=== PATIENT | male | born 1960 | race Caucasian/White ===

== ENCOUNTER 2016-11-28 07:41 | Emergency (ER) | payer BC ==
[~2016-11-28] VITALS: Ht 182.9 cm; Wt 84.1 kg
[2016-11-28 07:45] VITALS: TEMP 36.5; Ht 182.9 cm; Wt 84.1 kg
[2016-11-28] MEDS ORDERED: METO25TA3 PO (08:18)
[2016-11-28] MEDS ORDERED: WARF10TA4 PO ×2 (08:18)
[2016-11-28] MEDS ORDERED: HYDR25TA4 PO (08:18)
[2016-11-28] MEDS ORDERED: PRAV20TA PO (08:18)
[2016-11-28] MEDS ORDERED: FLEC50TA20 PO (08:18)
[2016-11-28 08:28] LABS: BASO % 0.4 %; BASO ABS # 0.05 K/uL (0-0.2); COMPLETE YES; EOS % 1.2 %; HEMATOCRIT 42.9 % (42-52); IG% 0.2 %; LYMPH % 16.1 %; MEAN CORPUSCULAR HEMOGLOBIN 32.8 pg (25-34); MEAN CORPUSCULAR HGB CONC 36.8 g/dl (32-36); MEAN PLATELET VOLUME 9.9 fL (7.4-10.4); MONO % 10.8 %; NEUT % 71.3 %; PLATELET COUNT 283 K/uL (130-400); RED BLOOD COUNT 4.82 M/uL (4.7-6.1); WHITE BLOOD COUNT 13.66 K/uL (4.8-10.8)
--- NOTE | 2016-11-28 08:35 | EMERGENCY ROOM VISIT NOTE ---
History First contact with patient: 07:52 Chief Complaint: URINARY SYMPTOMS Stated Complaint: BLOOD IN URINE, PAIN IN LEG AND [place] AREA Nursing Triage Summary: Awoke today with hematuria and left-sided flank pain. (has a stent in the left kidney). History of Present Illness The patient is a 56 year old male 20 pack-yr Smoker w/ hx of Atrial Fibrillation on Warfarin and hx Renal artery Stenosis s/p stenting, who presents to the Emergency Room with complaints of dark red urine. Patient reports 2 episodes of dark red urine once around 3 AM the morning of arrival and subsequently between 5-7 AM. He denies increased urinary frequency, dysuria , urgency. He also reports constant flank pain 1/10 intensity and Left Leg pain particularly at the thigh since 3-4 PM day before arrival. No Hx of Renals stones. Pt denies fevers, chills, chest pain, shortness of breath, palpitation, nausea , vomiting, abdominal pain, diarrhea, and melena. Review of Systems See HPI for pertinent positives & negatives. A total of 10 systems reviewed and were otherwise negative. Social History Smoking Status: Current Every Day Smoker Alcohol Use: occasionally Marital Status: Housing Status: lives with family Current/Historical Medications Scheduled Flecainide (Tambocor), 25 MG PO BID Hydrochlorothiazide (Hctz), 25 MG PO DAILY Metoprolol Succ (Toprol Xl) (Toprol-Xl), 25 MG PO BID Pravastatin (Pravachol ), 20 MG PO PM Warfarin Sod (Jantoven), 10 MG PO 5XWK Warfarin Sod (Jantoven), 12.5 MG PO 2XWK Allergies Coded Allergies: No Known Allergies (Unverified , 11/28/16) Physical Exam Vital Signs Date Time Temp Pulse Resp B/P Pulse Ox O2 Delivery O2 Flow Rate FiO2 11/28/16 10:58 57 18 180/92 99 Room Air 11/28/16 08:42 63 19 148/79 95 Room Air 11/28/16 08:11 71 11/28/16 07:45 36.5 69 18 132/84 96 Room Air Physical Exam GENERAL: alert, well appearing, well nourished, no distress, non-toxic EYE EXAM: normal conjunctiva, PERRL and EOM's grossly intact NECK: supple, no nuchal rigidity, no adenopathy, non-tender LUNGS: Clear to auscultation. Normal chest wall mechanics HEART: no murmurs, S1 normal and S2 normal ABDOMEN: abdomen soft, non-tender, normo-active bowel sounds, no masses, no rebound or guarding. BACK: Back is symmetrical on inspection and there is no deformity, no midline tenderness, no CVA tenderness. SKIN: no rashes and no bruising UPPER EXTREMITIES: upper extremities are grossly normal. LOWER EXTREMITIES: No pitting edema. NEURO EXAM: Normal sensorium, cranial nerves II-XII grossly intact, normal speech, no gross weakness of arms, no gross weakness of legs. Medical Decision & Procedures Laboratory Results 11/28/16 08:03 Red Blood Count 4.82, Mean Corpuscular Volume 89.0, Mean Corpuscular Hemoglobin 32.8, Mean Corpuscular Hemoglobin Concent 36.8, Mean Platelet Volume 9.9, Neutrophils (%) (Auto) 71.3, Lymphocytes (%) (Auto) 16.1, Monocytes (%) (Auto) 10.8, Eosinophils (%) (Auto) 1.2, Basophils (%) (Auto) 0.4, Neutrophils # (Auto ) 9.74, Lymphocytes # (Auto) 2.20, Monocytes # (Auto) 1.48, Eosinophils # (Auto ) 0.16, Basophils # (Auto) 0.05 11/28/16 08:03 Test 11/28/16 08:03 11/28/16 08:50 11/28/16 09:30 White Blood Count 13.66 K/uL (4.8-10.8) Red Blood Count 4.82 M/uL (4.7-6.1) Hemoglobin 15.8 g/dL (14.0-18.0) Hematocrit 42.9 % (42-52) Mean Corpuscular Volume 89.0 fL (80-100) Mean Corpuscular Hemoglobin 32.8 pg (25-34) Mean Corpuscular Hemoglobin Concent 36.8 g/dl (32-36) Platelet Count 283 K/uL (130-400) Mean Platelet Volume 9.9 fL (7.4-10.4) Neutrophils (%) (Auto) 71.3 % Lymphocytes (%) (Auto) 16.1 % Monocytes (%) (Auto) 10.8 % Eosinophils (%) (Auto) 1.2 % Basophils (%) (Auto) 0.4 % Neutrophils # (Auto) 9.74 K/uL (1.4-6.5) Lymphocytes # (Auto) 2.20 K/uL (1.2-3.4) Monocytes # (Auto) 1.48 K/uL (0.11-0.59) Eosinophils # (Auto) 0.16 K/uL (0-0.5) Basophils # (Auto) 0.05 K/uL (0-0.2) RDW Standard Deviation 40.3 fL (36.4-46.3) RDW Coefficient of Variation 12.6 % (11.5-14.5) Immature Granulocyte % (Auto) 0.2 % Immature Granulocyte # (Auto) 0.03 K/uL (0.00-0.02) Anion Gap 9.0 mmol/L (3-11) Est Creatinine Clear Calc Drug Dose 96.3 ml/min Estimated GFR () 104.6 Estimated GFR (Non- 90.3 BUN/Creatinine Ratio 19.8 (10-20) Calcium Level 9.1 mg/dl (8.5-10.1) Prothrombin Time 83.6 SECONDS (9.0-12.0) Prothromb Time International Ratio 7.2 (0.9-1.1) Urine Color BROWN Urine Appearance CLOUDY (CLEAR) Urine pH 5.5 (4.5-7.5) Urine Specific [place] 1.025 (1.000-1.030) Urine Protein 2+ (NEG) Urine Glucose (UA) NEG (NEG) Urine Ketones NEG (NEG) Urine Occult Blood 3+ (NEG) Urine Nitrite NEG (NEG) Urine Bilirubin NEG (NEG) Urine Urobilinogen NEG (NEG) Urine Leukocyte Esterase NEG (NEG) Urine RBC >30 /hpf (0-4) Urine WBC 5-10 /hpf (0-5) Urine Epithelial Cells 5-10 /lpf (0-5) Urine Bacteria 1+ (NEG) Urine Mucus PRESENT (NONE PRSENT) Medical Decision 56 year old male 20 pack-yr Smoker w/ hx of Atrial Fibrillation on Warfarin and hx Renal artery Stenosis s/p stenting p/w dark red urine ddx: Nephrolithiasis vs. UTI vs. Bladder Cancer vs. Warfarin induced coagulopathy Hematuria -likely secondary to passed kidney stone in the setting of warfarin induced coagulopathy -minimal pain in left flank, no urgency frequency, dysuria, CBC: WBC 13.66, H/H wnl UA: 3+ blood, 2+ protein, 5-10 WBC, 1+ bacteria, hematuria confirmed, Evidence for UTI unremarkable, Urine cx will require followup by patient PT/INR: 83.6/7.2, patient's warfarin dosage was increased 1 month prior to arrival. CT Abdomen/Pelvis: punctate non-obstructing left renal stone. No hydronephrosis. no ureteral calculi identified. This could represent a recently passed stone versus a pyelonephritis. Upon reevaluation, the patient is feeling better. I discussed the findings and the treatment plan with the patient. He verbalizes agreement and understanding. He was discharged home with followup to PCP for Coumadin management and ongoing care. Patient advised to stop Coumadin for 48 hrs. Impression Primary Impression: Hematuria Additional Impressions: Renal colic Warfarin-induced coagulopathy Departure Information Dispostion Home / Self-Care Condition GOOD Referrals Nish Esquivel Jr,D.O. (PCP) Patient Instructions ED Hematuria, My [facility] Additional Instructions - Please stop Taking Warfarin for the next 48 hrs - Please follow up with Primary Care Provider and for PT/INR check this week - Please contact [facility] for results in 48 hrs - Take Tylenol as needed for pain. Do not take NSAIDS Resident Tracking Resident Involvement: Resident Care Provided Care Provided: Adult ED Problem Qualifiers
[2016-11-28 08:38] LABS: BUN/CREATININE RATIO 19.8 (10-20); CALCIUM 9.1 mg/dl (8.5-10.1); CREATININE 0.94 mg/dl (0.60-1.40); POTASSIUM 3.5 mmol/L (3.5-5.1)
--- NOTE | 2016-11-28 08:57 | DIAGNOSTIC IMAGING REPORT ---
ABDOMEN AND PELVIS CT WITHOUT CONTRAST CT DOSE: 830.67 mGy.cm HISTORY: Left flank pain TECHNIQUE: Multiaxial CT images of the abdomen and pelvis were performed without the use of intravenous and oral contrast according to the standard department stone protocol. COMPARISON STUDY: Renal ultrasound 06/14/2012. FINDINGS: Mild bibasilar subsegmental atelectasis. No pneumoperitoneum. No pneumatosis. There are few small hypodense lesions within the right hepatic lobe with the largest measuring 9 mm. These are too small to characterize. The unenhanced spleen, adrenal glands, pancreas, and gallbladder are unremarkable. No retroperitoneal lymphadenopathy. Left renal artery stent. Bladder is not well-distended but appears unremarkable. Punctate nonobstructing stone within the left kidney. No hydronephrosis. Mild left perinephric and proximal periureteral fat stranding. No ureteral or bladder calculi identified. Suboptimal evaluation for bowel pathology due to the lack of intravenous and oral contrast. However, there is no definite bowel wall thickening or obstruction. Colonic diverticulosis. Normal caliber appendix. IMPRESSION: 1. A punctate nonobstructing left renal stone. No hydronephrosis. 2. Mild left perinephric and proximal periureteral fat stranding. However, there are no ureteral calculi identified. This could represent a recently passed stone versus a pyelonephritis. 3. No bowel wall thickening or obstruction. 4. Colonic diverticulosis. 5. Normal appendix. Electronically signed by: Jose Muñoz M.D. 11/28/2016 8:56 AM Dictated Date/Time: 11/28/2016 8:47 AM
[2016-11-28 09:17] LABS: PROTHROMBIN TIME (PATIENT) 83.6 SECONDS (9.0-12.0)
[2016-11-28 09:23] LABS: INR 7.2 (0.9-1.1)
--- NOTE | 2016-11-28 09:35 | EMERGENCY ROOM VISIT NOTE ---
ED Visit Note First contact with patient: 07:52 Resident Physician Supervision Note: I interviewed and examined the patient. Discussed with Dr. Curry findings and plan as documented in the note. Any exceptions or clarifications are listed here : [None] Documented By: Morales Harris
[2016-11-28 09:54] LABS: MANUAL MICROSCOPIC REQUIRED? YES; URINE APPEARANCE CLOUDY (CLEAR); URINE BILIRUBIN NEG (NEG); URINE COLOR BROWN; URINE NITRITE NEG (NEG); URINE PH 5.5 (4.5-7.5); URINE SPECIFIC GRAVITY 1.025 (1.000-1.030); UROBILINOGEN NEG (NEG)
[2016-11-28 09:57] LABS: REVIEW REQ? NO
[2016-11-28 10:02] LABS: URINE RBC >30 /hpf (0-4)
[2016-11-28 10:03] LABS: URINE BACTERIA 1+ (NEG); URINE MUCUS PRESENT (NONE PRSENT); ZZUR CULT IF INDIC CLEAN CATCH NO
[2016-11-28 10:58] VITALS: BP 180/92; PULSE 57; O2SAT 99
== END 2016-11-28 11:16 | disposition home or self-care (01) ==
LOC: C.EDB 07:43
DX: R31.9 Hematuria, unspecified (principal); N23 Unspecified renal colic; D68.32 Hemorrhagic disorder due to extrinsic circulating anticoagulants; T45.515A Adverse effect of anticoagulants, initial encounter; I48.91 Unspecified atrial fibrillation; F17.200 Nicotine dependence, unspecified, uncomplicated; Z98.890 Other specified postprocedural states; Z79.01 Long term (current) use of anticoagulants

== ENCOUNTER 2024-08-10 03:20 | Inpatient (IN) ==
--- NOTE | 2024-08-10 03:52 | Emergency Department Note ---
Impression & Plan Syncope, Face lacerations, Hypokalemia [facility] Provider Note NAME: CARLA COELLO AGE: 64 SEX: Male INFORMANT: Patient and his ED PROVIDER(S): Heather Cleaning DO CHIEF COMPLAINT: syncope; facial trauma PLAN: Disposition: admit to the [facility] MEDICAL DECISION MAKING: This is a 64-year-old male patient who got up from bed this morning to go to the kitchen to get a dose of cough medication when he suffered a syncopal event. He remembers walking into the kitchen and grabbed a bottle of cough medication but then was on the floor with family members around him with significant trauma to his face. Patient's explains to me that he had recently worn a monitoring and evaluation advisor which recognized increased episodes of atrial fibrillation as well as episodes of ventricular tachycardia. I believe the patient may have suffered an episode of V. tach which could have led to him falling forward and striking his face and causing the facial trauma. CT scan of the brain, facial bones and cervical spine were negative for trauma. Patient was slightly hypokalemic. he was given IV potassium. Other laboratory studies revealed a glucose of 137. The patient was not anemic. White blood cell count was 13.1. Renal function was normal. He was given A tetanus booster. The wounds on his face were repaired by Kaylee Hart PA-C. Please see her procedure note dictation for details. I [facility] and they will evaluate for further inpatient care. Triage Nursing notes: reviewed and agree With them. Vital Signs: reviewed and Unremarkable Additional History obtained from: patient's is at the bedside Chronic Medical/Social Conditions affecting care: patient is on Eliquis for A- fib Differential Diagnosis: orthostasis, cough syncope, cardiac dysrhythmia, intracranial trauma, facial bone fractures viral illness, pneumonia Diagnostics, independently interpreted by me: ECG: Normal sinus rhythm at a rate of [address] segment elevation or signs of ischemia. There is no ectopy. QTc was 397 ms. Cardiac Monitoring: Normal sinus rhythm at 62 Imaging studies: CT scan of the brain:As per imbro CT scan of the facial bones:as per imbro CT scan of the cervical spine:as per imbro Chest x-ray: no acute pulmonary infiltrates or consolidation as per my independent interpretation HPI: 64 year old Male arrives for evaluation of Fall with facial trauma. patient who got up from bed this morning to go to the kitchen to get a dose of cough medication when he suffered a syncopal event. He remembers walking into the kitchen and grabbed a bottle of cough medication but then was on the floor with family members around him with significant trauma to his face. PAST MEDICAL HISTORY: See Below, PAST SURGICAL HISTORY: See Below, SOCIAL HISTORY: See Below, HOME MEDICATIONS: see list ALLERGIES: none VITALS: See Below PHYSICAL EXAMINATION: HEENT: Head - normocephalic With obvious trauma to his nose and just above his lip. There is some active bleeding noted. Pupils are equal, round, and reactive to light. Extraocular eye muscles are intact and sclera are anicteric. Ears - bilaterally patent canals with no evidence of hemotympanum. Nose - moist nasal mucosa without evidence of trauma or discharge. Mouth - moist buccal mucosa with no trauma to the teeth or signs of malocclusion. Neck:The neck is supple and there is no pain to palpation over the posterior cervical spine and no obvious step-offs or deformities. There is no JVD or tracheal deviation. Chest: There are no signs of deformities, contusions or abrasions to the chest wall. There is no obvious crepitus or paradoxical chest rise. Heart: Regular, rate, and rhythm. There is a normal S1 and S2 with no murmurs, clicks, or gallops appreciated. Lungs: Clear to auscultation bilaterally with no wheezes, rales, or rhonchi. Abdomen: Soft, completely nontender, nondistended, with good bowel sounds. There is no sign of trauma such as contusions, abrasions or penetrations. There are no palpable pulsatile masses or hepatosplenomegaly. There is no guarding, rigidity, or rebound noted. Pelvis: Stable to rock and compression. Extremities: No obvious trauma, deformities, contusions, or edema. There are easily palpable peripheral pulses. Neuro: The patient is awake and alert and easily able to follow commands. Muscle strength is 5 out of 5 in all 4 extremities. Otherwise, neuro exam is unremarkable. Back: The entire thoracic, lumbar, and sacral spine were palpated. There are no obvious step-offs or deformities noted. There are no obvious signs of trauma such as contusions abrasions penetrations noted to the back. Emergency department treatment: nurse monitoring, IV normal saline, IV potassium replacement, suture repair to the facial wound. Emergency department course: The patient was evaluated in room C-10. A complete history and physical was performed. Laboratory studies were drawn as above. Twelve-lead EKG was obtained as described above. An order was placed for continuous cardiac monitoring. The patient was in a normal sinus rhythm at a rate of 62. Past Med/Surg History Problem List (Updated 08/10/24 @ 23:37 by Heather Cleaning DO) Hypokalemia (Acute) Face lacerations (Acute) Syncope (Acute) CAD (coronary artery disease) Paroxysmal atrial fibrillation Diarrhea due to COVID-19 COVID-19 virus infection Chronic anticoagulation Hypokalemia Hyperlipidemia Hypertension Atrial fibrillation Ventricular tachycardia Nasal laceration Syncope and collapse Surgical History (Updated 08/10/24 @ 13:59 by Bharat Collins MD) S/P ablation of atrial fibrillation Social History Smoking Status: Current every day smoker Tobacco Type: Cigarettes Cigarettes Per Day: 3; Hx Alcohol Use: No Hx Substance Use: No Preferred Language: [place] Communication Ability: Effective 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 Beliefs That Will Affect Care: None Current Living Situation: Spouse Current Living Situation Comment: 1 story house Feels Safe at Home: Yes Assistive Devices: None Allergies Allergies Allergy/AdvReac Type Severity Reaction Status Date / Time No Known Allergies Allergy Unverified 11/28/16 08:13 Home Meds Home Medications Medication Instructions Recorded Confirmed Flecainide (Tambocor) 25 mg PO BID #0 tabs 11/28/16 HYDROCHLOROTHIAZIDE (HCTZ) 25 mg PO DAILY #0 tabs 11/28/16 Metoprolol Succ (Toprol Xl) 25 mg PO BID #30 tabs 11/28/16 (Toprol-Xl) Pravastatin (Pravachol ) 20 mg PO PM #0 tabs 11/28/16 Warfarin Sod (Jantoven) 10 mg PO 5XWK #0 tabs 11/28/16 Warfarin Sod (Jantoven) 12.5 mg PO 2XWK #0 tabs 11/28/16 Results & Data (ED) Vital Signs Vital Signs - 24 hr 08/10/24 03:16 08/10/24 03:16 08/10/24 03:25 Temperature 37.0 C Temperature Source Oral Pulse Rate 63 62 Respiratory Rate 20 Respiratory Effort / Characteristics Non-Labored Respiratory Depth Normal Respiratory Pattern Regular Blood Pressure 132/62 Blood Pressure Mean 85 Pulse Oximetry 96 95 Oxygen Delivery Method Room Air Room Air Sepsis Recent Fever Within 48 Hours Yes Sepsis New/Unexplained Change in Mental Status N/A Sepsis Action Taken by Nursing No Action Required 08/10/24 03:30 08/10/24 03:43 08/10/24 04:42 Temperature Temperature Source Pulse Rate 60 72 Respiratory Rate 20 16 Respiratory Effort / Characteristics Respiratory Depth Respiratory Pattern Blood Pressure 129/62 142/71 H Blood Pressure Mean 84 94 Pulse Oximetry 95 96 95 Oxygen Delivery Method Room Air Room Air Room Air Sepsis Recent Fever Within 48 Hours Sepsis New/Unexplained Change in Mental Status Sepsis Action Taken by Nursing 08/10/24 04:45 08/10/24 05:00 08/10/24 05:30 Temperature Temperature Source Pulse Rate 69 67 70 Respiratory Rate 20 16 Respiratory Effort / Characteristics Respiratory Depth Respiratory Pattern Blood Pressure 151/81 H 147/70 H Blood Pressure Mean 94 96 Pulse Oximetry 95 96 Oxygen Delivery Method Room Air Room Air Sepsis Recent Fever Within 48 Hours Sepsis New/Unexplained Change in Mental Status Sepsis Action Taken by Nursing Laboratory Data 08/10/24 03:30 08/10/24 03:30 Lab Results 08/10/24 08/10/24 08/10/24 Range/Units 03:30 03:43 03:54 WBC 13.15 H (4.8-10.8) K/ul RBC 4.97 (4.70-6.10) M/uL Hgb 15.8 (14.0-18.0) g/dl POC Hgb 15.0 (14.0-18.0) g/dl Hct 45.5 (42.0-52.0) % POC Hct 44 (42-52) % MCV 91.5 (80.0-100.0) fL MCH 31.8 (25.0-34.0) pg MCHC 34.7 (32.0-36.0) g/dL RDW Std Deviation 41.8 (36.4-46.3) fL RDW Coeff of Marcial 12.6 (11.5-14.5) % Plt Count 211 (130-400) K/uL MPV 10.2 (9.4-12.4) fL Immature Gran % (Auto) 0.4 % Neut % (Auto) 68.8 % Lymph % (Auto) 17.6 % [place] % (Auto) 12.5 % Eos % (Auto) 0.1 % Baso % (Auto) 0.6 % Neut # (Auto) 9.05 H (1.40-6.50) K/uL Lymph # (Auto) 2.31 (1.20-3.40) K/uL [place] # (Auto) 1.65 H (0.11-0.59) K/uL Eos # (Auto) 0.01 (0.00-0.50) K/uL Baso # (Auto) 0.08 (0.00-0.20) K/uL Immature Gran # (Auto) 0.05 (0.01-0.20) K/uL PT 11.0 (9.0-12.0) Seconds INR 1.0 (0.9-1.1) APTT 29 (21-31) Seconds PTT Ratio 1.1 POC Sodium 135 (135-144) mmol/L Sodium 136 (136-145) mmol/L POC Potassium 3.6 (3.3-5.0) mmol/L Potassium 3.2 L (3.5-5.1) mmol/L POC Chloride 95 L (101-112) mmol/L Chloride 96 L (98-107) mmol/L Carbon Dioxide 29 (21-32) mmol/L POC Total CO2 27 (24-31) mmol/L Anion Gap 11 (3-11) POC Anion Gap 18.0 (16-25) mmol/L POC BUN 18 (7-18) mg/dl BUN 18 (6-23) mg/dl Creatinine 1.06 (0.6-1.4) mg/dl POC Creatinine 1.1 (0.6-1.3) mg/dl Est Cr Clr Drug Dosing 77.3 ml/min eGFR 78.37 BUN/Creatinine Ratio 17.0 (10-20) Glucose 137 H (70-99(Fasting)) mg/dl POC Glucose (other) 133 H (70-99) mg/dl Calcium 9.5 (8.6-10.3) mg/dl POC Ioniz Calcium [place] 1.04 L (1.12-1.32) mmol/l Magnesium 1.9 (1.7-2.4) mg/dl Total Bilirubin 1.2 H (0.2-1.0) mg/dl AST 28 (13-39) U/L ALT 30 (7-52) U/L Alkaline Phosphatase 88 (34-104) U/L Troponin I High Sens 12.4 (0-20) pg/ml Total Protein 8.0 (6.0-8.3) gm/dl Albumin 4.7 (3.4-5.0) gm/dl Globulin 3.3 (2.5-4.0) gm/dl Albumin/Globulin Ratio 1.4 (0.9-2) Lipase 24 (11-82) U/L TSH 7.012 H (0.300-4.500) uIu/ml Adenovirus (PCR) Not Detected (NotDetected) B. pertussis DNA (PCR) Not Detected (NotDetected) B.parapertussis DNA PCR Not Detected (NotDetected) C. pneumoniae DNA (PCR) Not Detected (NotDetected) Coronavirus OC43 (PCR) Not Detected (NotDetected) Coronavirus HKU1 (PCR) Not Detected (NotDetected) Coronavirus 229E (PCR) Not Detected (NotDetected) SARS-CoV-2 (PCR) DETECTED A (NotDetected) Coronavirus NL63 (PCR) Not Detected (NotDetected) Human Metapneumovir PCR Not Detected (NotDetected) Influenza Type A (PCR) Not Detected (NotDetected) Influenza Type B (PCR) Not Detected (NotDetected) M. pneumoniae (PCR) Not Detected (NotDetected) Parainfluenza 1 (PCR) Not Detected (NotDetected) Parainfluenza 2 (PCR) Not Detected (NotDetected) Parainfluenza 3 (PCR) Not Detected (NotDetected) Parainfluenza 4 (PCR) Not Detected (NotDetected) RSV (PCR) Not Detected (NotDetected) Entero/Rhino (PCR) Not Detected (NotDetected) Administered Medications Acetaminophen (Acetaminophen 325 Mg Tab) 650 mg PO Q4H PRN PRN Reason: Pain or Fever Stop: 09/09/24 08:22 Last Admin: 08/10/24 21:20 Dose: 650 mg Documented By: Admin: 08/10/24 17:08 Dose: 650 mg Documented By: Admin: 08/10/24 11:13 Dose: 650 mg Documented By: PAT Apixaban (Apixaban 5 Mg Tablet) 5 mg PO BID YOEL Stop: 09/09/24 08:59 Last Admin: 08/10/24 20:40 Dose: 5 mg Documented By: Admin: 08/10/24 09:30 Dose: 5 mg Documented By: PAT Metoprolol Succinate (Metoprolol Succ 50mg Ext Rel Tab) 37.5 mg PO HS YOEL Stop: 09/09/24 20:59 Last Admin: 08/10/24 20:41 Dose: 37.5 mg Documented By: GARTH Rosuvastatin Calcium (Rosuvastatin Calcium 20 Mg Tab) 40 mg PO [facility] Stop: 09/09/24 20:59 Last Admin: 08/10/24 20:40 Dose: 40 mg Documented By: GARTH Discontinued Medications Diphtheria/Pertussis/Tetanus Vacc (Diphther/Tetan/Pertus Vaccine (Tdap, Adol/Adult) 0.5ml) 0.5 ml IM .ONCE ONE Stop: 08/10/24 03:44 Last Admin: 08/10/24 04:52 Dose: 0.5 ml Documented By: GOPI Potassium Chloride (K Osbaldo / Wtr) 10 meq in 100 mls @ 100 mls/hr IV ONE ONE Stop: 08/10/24 05:41 Last Infusion: 08/10/24 06:07 Dose: Infused Documented By: Admin: 08/10/24 04:51 Dose: 100 mls/hr Documented By: GOPI Remdesivir 200 mg/ Sodium (Chloride) 250 mls @ 125 mls/hr IV ONE STA; Protocol Stop: 08/10/24 08:45 Last Infusion: 08/10/24 10:32 Dose: Infused Documented By: Admin: 08/10/24 08:24 Dose: 125 mls/hr Documented By: PAT Potassium Chloride/Sodium Chloride (Normal Saline W/20 Meq Kcl) 20 meq in 1,000 mls @ 100 mls/hr IV .Q10H STA Stop: 08/10/24 16:46 Last Infusion: 08/10/24 18:31 Dose: Infused Documented By: Admin: 08/10/24 07:28 Dose: 100 mls/hr Documented By: SHALOM Lidocaine HCl (Lidocaine 1% Local 20 Ml Vial) 10 ml INFIL NOW ONE Stop: 08/10/24 06:06 Last Admin: 08/10/24 06:10 Dose: 10 ml Documented By: KMPrincess Discharge Plan Visit Data Chief Complaint: Syncope Stated Complaint: Syncope, Fall, Nose Laceration ED Provider: Heather Cleaning Discharge Problem: Syncope, Face lacerations, Hypokalemia Patient Disposition: Admitted As Inpatient Discharge Instructions Interventions: ED Discharge Assessment Last Done: 08/10/24 07:45
[2024-08-10 04:07] LABS: iSTAT Creatinine 1.1 mg/dl (0.6-1.3); iSTAT Ionized Calcium 1.04 mmol/l (1.12-1.32); iSTAT Potassium 3.6 mmol/L (3.3-5.0)
[2024-08-10 04:23] LABS: Basophils # (auto) 0.08 K/uL (0.00-0.20); Basophils % (auto) 0.6 %; Eosinophils # (auto) 0.01 K/uL (0.00-0.50); Eosinophils % (auto) 0.1 %; Hematocrit (blood only) 45.5 % (42.0-52.0); Hemoglobin 15.8 g/dl (14.0-18.0); Immature Granulocytes # (auto) 0.05 K/uL (0.01-0.20); Immature Granulocytes % (auto) 0.4 %; Lymphocytes # (auto) 2.31 K/uL (1.20-3.40); Lymphocytes % (auto) 17.6 %; Mean Corpuscular Hemoglobin 31.8 pg (25.0-34.0); Mean Corpuscular Hgb Conc 34.7 g/dL (32.0-36.0); Mean Corpuscular Volume 91.5 fL (80.0-100.0); Mean Platelet Volume 10.2 fL (9.4-12.4); Monocytes # (auto) 1.65 K/uL (0.11-0.59); Monocytes % (auto) 12.5 %; Neutrophils # (auto) 9.05 K/uL (1.40-6.50); Neutrophils % (auto) 68.8 %; Platelet Count 211 K/uL (130-400); RDW Coefficient of Variation 12.6 % (11.5-14.5); RDW Standard Deviation 41.8 fL (36.4-46.3); Red Blood Count 4.97 M/uL (4.70-6.10); White Blood Count 13.15 K/ul (4.8-10.8)
[2024-08-10 04:40] LABS: Albumin Globulin Ratio 1.4 (0.9-2); Albumin Level 4.7 gm/dl (3.4-5.0); Bilirubin,Total 1.2 mg/dl (0.2-1.0); Calcium 9.5 mg/dl (8.6-10.3); Creatinine Clr Calc Pharmacy 77.3 ml/min; Globulin 3.3 gm/dl (2.5-4.0); Potassium 3.2 mmol/L (3.5-5.1)
[2024-08-10 04:47] LABS: Troponin I High Sensitivity 12.4 pg/ml (0-20)
[2024-08-10 04:49] LABS: Partial Thromboplastin Ratio 1.1; Partial Thromboplastin Time 29 Seconds (21-31)
[2024-08-10] MEDS: POTASSIUM CHLORIDE / WTR 10 MEQ/100 ML PLCT IV ONE (04:51)
[2024-08-10] MEDS: DIPHTHER/TETAN/PERTUS Vaccine (Tdap, Adol/Adult) 0.5mL IM ONE (04:52)
[2024-08-10 05:12] LABS: Adenovirus PCR Not Detected (NotDetected); Bordetella parapertussis PCR Not Detected (NotDetected); Bordetella pertussis PCR Not Detected (NotDetected); Chlamydia pneumoniae PCR Not Detected (NotDetected); Coronavirus 229E PCR Not Detected (NotDetected); Coronavirus CoV-2 (COVID19)PCR DETECTED (NotDetected); Coronavirus HKU1 PCR Not Detected (NotDetected); Coronavirus NL63 PCR Not Detected (NotDetected); Coronavirus OC43PCR Not Detected (NotDetected); Human Metapneumovirus PCR Not Detected (NotDetected); Influenza A PCR Not Detected (NotDetected); Influenza B PCR Not Detected (NotDetected); Mycoplasma pneumoniae PCR Not Detected (NotDetected); Parainfluenza Virus 1 PCR Not Detected (NotDetected); Parainfluenza Virus 2 PCR Not Detected (NotDetected); Parainfluenza Virus 3 PCR Not Detected (NotDetected); Parainfluenza Virus 4 PCR Not Detected (NotDetected); Respiratory Syncytial VirusPCR Not Detected (NotDetected); Rhinovirus/Enterovirus PCR Not Detected (NotDetected)
--- NOTE | 2024-08-10 05:23 | CT Scan Report ---
EXAM: CT head/brain wo con CLINICAL HISTORY: Fall, multiple facial injuries, r/o head trauma TECHNIQUE: Axial non-contrast CT scan of the brain was performed from the skull base to the high parietal region with multiple reformats. One of the following dose reduction techniques were utilized for this exam: Automated exposure control, adjustment of the mA and/or kV according to patient size, use of iterative reconstruction. COMPARISON: None. FINDINGS: Brain Parenchyma: Normal attenuation of the cerebral hemispheres, cerebellum, and brainstem. No evidence of acute infarct, hemorrhage, or mass effect. No abnormal areas of hypo- or hyperattenuation. Ventricular System: Mildly prominent ventricular system suggestive of central involutional changes. No evidence of hydrocephalus or ventricular enlargement. Subarachnoid Spaces: Normal sulci and cisterns. No evidence of subarachnoid hemorrhage or extra-axial fluid collections. Cerebellum and Brainstem: Normal size and signal. No masses, lesions, or areas of abnormal signal. Orbits: Normal appearance of the globes, optic nerves, and extraocular muscles. No evidence of orbital masses or abnormal signal. Mastoid Air Cells: Clear mastoid air cells. No evidence of mastoiditis. Skull: Normal skull morphology. IMPRESSION: 1. Mildly prominent ventricular system suggestive of central involutional changes. 2. Rest of CT of the head without contrast is unremarkable with no acute intracranial abnromality. Electronically signed by Ai Oviedo 08-10-2024 05:23 AM
--- NOTE | 2024-08-10 05:32 | CT Scan Report ---
EXAM: CT facial bones wo con CLINICAL HISTORY: fall, facial injuries, laceration down nasal area, painful teeth, r/o trauma. TECHNIQUE: CT scan of the maxillofacial region was performed without the administration of intravenous contrast. Contiguous axial images were obtained from the skull base to the mandible. Coronal and sagittal reformatted images were also reviewed. One of the following dose-reduction techniques was utilized for this exam. Automated exposure control, adjustment of the mA and/or kV according to patient size, and use of iterative reconstruction. COMPARISON: No previous studies are available for comparison. FINDINGS: Bones: Maxilla: The maxillary bones are intact without evidence of acute fracture, lytic or sclerotic lesions. No signs of maxillary sinus wall fractures. Mandible: The mandibular bone is intact with normal cortices and trabecular patterns. There is no evidence of fracture, osteomyelitis, or neoplastic lesion. Zygomatic Bones: The zygomatic arches are intact bilaterally without evidence of fracture or deformity. Nasal Bones and nasal cavity: Skin wound/ulcer is seen involving the nasal region right aspect associated with soft tissue swelling and edema. No definite displaced fractures. Orbital Angulo: The orbital angulo are intact with no evidence of fracture or bony erosion. Orbits: The orbits are normal in size and shape. The globes are symmetric and well-positioned with no evidence of proptosis. The extraocular muscles appear normal in size and symmetry. The optic nerves are normal in caliber and course with no signs of compression or lesion. No retro-orbital masses or abnormal fluid collections are observed. Paranasal Sinuses: Frontal Sinuses: The frontal sinuses are well-pneumatized and free of fluid or soft tissue masses. Ethmoid Sinuses: The ethmoid air cells are clear with no mucosal thickening or fluid levels. Maxillary Sinuses: The maxillary sinuses are well-pneumatized with no fluid levels, mucosal thickening, or masses. Sphenoid Sinuses: The sphenoid sinuses are clear with no abnormalities noted. Temporomandibular Joints (TMJ): The TMJs are symmetric and normal in appearance. The mandibular condyles are well-positioned within the glenoid fossae. There are no signs of dislocation, subluxation, or degenerative changes. The articular eminences are normal in contour. Soft Tissues: The rest of the soft tissues of the face, including the cheeks, lips, and submandibular regions, appear unremarkable. There are no masses, cysts, or abnormal fluid collections. The parotid and submandibular glands are normal in size and appearance without focal lesions. Additional Findings: There are no additional abnormal findings in the visualized soft tissue structures or bony elements. No signs of osteomyelitis or other infectious processes. IMPRESSION: 1. Skin wound/ulcer is seen involving the nasal region right aspect associated with soft tissue swelling and edema. 2. No acute fractures. [facility] was called at [phone] at 04:26 AM WELFARE ELIGIBILITY WORKER, 08/10/2024, and ARNAV Hart was informed regarding the presence of important medical findings in the report. Electronically signed by Ai Oviedo 08-10-2024 05:32 AM
--- NOTE | 2024-08-10 05:35 | XRay Report ---
EXAM: XR chest 1V portable CLINICAL HISTORY: SYNCOPE. TECHNIQUE: An X-ray image of the chest is obtained in AP portable projection. COMPARISON: CT on 06/02/2022. FINDINGS: Pulmonary Parenchyma: No evidence of consolidation, collapse, or focal opacities. No pulmonary nodules are identified. No evidence of pleural effusion or pleural thickening. Heart and Mediastinum: Heart size and shape are normal. No mediastinal widening or masses. No hilar or mediastinal lymphadenopathy. Bony Thorax: Bony thorax appears intact without fractures or deformities. Soft Tissues: Soft tissues overlying the chest wall are unremarkable. IMPRESSION: 1. No acute cardiopulmonary abnormalities are identified. 2. No interval change in comparison with the prior CT. Electronically signed by Ai Oviedo 08-10-2024 05:34 AM
--- NOTE | 2024-08-10 05:35 | CT Scan Report ---
EXAM: CT cervical spine wo con CLINICAL HISTORY: fall, multiple facial injuries, r/o neck trauma. TECHNIQUE: CT scan of the cervical spine was performed without the administration of intravenous contrast. Contiguous axial images were obtained from the skull base to the upper thoracic spine. Coronal and sagittal reformatted images were also reviewed. One of the following dose-reduction techniques was utilized for this exam. Automated exposure control, adjustment of the mA and/or kV according to patient size, and use of iterative reconstruction. COMPARISON: No previous studies are available for comparison. FINDINGS: No fracture lines, wedging, vertebral collapse Loss of cervical lordosis may indicate muscle spasmMultilevel degenerative changes of the cervical spine with narrowing of the intervertebral disc spaces associated with anterior and posterior marginal osteophytes. No lytic or sclerotic bony lesions Atlantoaxial osteoarthritic changes Mild multilevel facet arthropathic changes neurocentral arthropathy from C4-5 down to C6-7 causing degenerative corresponding neuroforaminal compromise C4-5 down to C6-7 posterior disc bulges indenting the cord and encroaching into both neural exit pathways and exiting nerve roots Better evaluation of disc disease requires further MRI No paraspinal masses IMPRESSION: 1. No fracture lines, wedging, vertebral collapse 2. Loss of cervical lordosis may indicate muscle spasm 3. Multilevel degenerative changes 4. Mild multilevel facet arthropathic changes 5. 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 C4-5 down to C6-7 posterior disc bulges encroaching into both exiting nerve roots 7. Better evaluation of disc disease requires further MRI. Electronically signed by Ai Oviedo 08-10-2024 05:35 AM
[2024-08-10] MEDS: LIDOCAINE 1% LOCAL 20 ML VIAL INFIL ONE (06:10)
--- NOTE | 2024-08-10 06:39 | History & Physical Report ---
Date of Service August 10, 2024 Assessment & Plan (1) Syncope and collapse: (2) Ventricular tachycardia: (3) Atrial fibrillation: (4) Hypokalemia: (5) Chronic anticoagulation: (6) Nasal laceration: (7) Hypertension: (8) Hyperlipidemia: (9) COVID-19 virus infection: (10) Diarrhea due to COVID-19: Plan Syncope and collapse- The patient will be admitted to telemetry for serial cardiac enzymes, serial EKG's, cardiac rhythm monitoring and a 2-D echocardiogram with Dopplers. Has recently worn a monitor with Dr. Leung that identified ventricular tachycardia. Underwent cardiac catheterization at [facility] on 07/31 which showed an isolated 30% lesion with no intervention There is a follow-up appointment at [facility] on 08/14 to see EPS specialist In the interim, the patient has come to the emergency department with a syncopal episode that occurred rapidly enough that he was unable to break his fall other than with his nose. Has a large skin laceration Patient had been on flecainide 25 mg twice daily in the past which was discontinued Current medications include metoprolol succinate ER 37.5 mg at bedtime, and apixaban 5 mg p.o. twice daily, however previously been on warfarin. He presently is on hydrochlorothiazide 25 mg every morning, which will be held due to hypokalemia Potassium is 3.2 on admission, received 10 mEq K rider in the ED, and placed on NSS + KCl 20 mill equivalents at 100 mL/h x 1 L Add magnesium level to the ED labs and supplement as needed Consult cardiology, patient has no ectopy while in the ED at this time, will ask whether IV antiarrhythmic is indicated as amiodarone COVID-19 infection/gastroenteritis- Likely a contributing cause to diarrhea and hypokalemia Will therefore start on remdesivir IV per protocol IV fluids for supplementation as noted above Hyperlipidemia- Continue rosuvastatin 40 mg at bedtime, previously on pravastatin 20 at bedtime History of Present Illness Chief Complaint: The patient presents to the emergency department after a syncopal episode, where he was getting up to a cough medicine earlier this morning, and found himself on the floor looking up at the ceiling with his family around him. He fell abruptly nothing he has a large laceration on his nose which is being repaired in the ED. Primary Care Provider: NO PCP The patient is a 64-year-old male with a past medical history including atrial fibrillation status post ablation several years ago, recently diagnosed ventricular tachycardia, recent negative cardiac catheterization at [facility] on 07/31, hypertension, and hyperlipidemia. His reports that he had had loose stools over the past 24 to 48 hours, and he reports nasal congestion and sinus congestion. He has had no cough or shortness of breath. He was diagnosed with COVID in the emergency department this morning. Allergies Allergy/AdvReac Type Severity Reaction Status Date / Time No Known Allergies Allergy Unverified 11/28/16 08:13 Home Medications Medication Instructions Recorded Confirmed Type Flecainide (Tambocor) 25 mg PO BID #0 tabs 11/28/16 History HYDROCHLOROTHIAZIDE (HCTZ) 25 mg PO DAILY #0 tabs 11/28/16 History Metoprolol Succ (Toprol Xl) 25 mg PO BID #30 tabs 11/28/16 History (Toprol-Xl) Pravastatin (Pravachol ) 20 mg PO PM #0 tabs 11/28/16 History Warfarin Sod (Jantoven) 10 mg PO 5XWK #0 tabs 11/28/16 History Warfarin Sod (Jantoven) 12.5 mg PO 2XWK #0 tabs 11/28/16 History Past Med/Surg History Problem List (Updated 08/10/24 @ 06:51 by Edin Abbott MD) Diarrhea due to COVID-19 COVID-19 virus infection Chronic anticoagulation Hypokalemia Hyperlipidemia Hypertension Atrial fibrillation Ventricular tachycardia Nasal laceration Syncope and collapse Social History Smoking Status: Current every day smoker Tobacco Type: Cigarettes Preferred Language: Albanian Feels Safe at Home: Yes Review of Systems Review of Systems: The patient denies chest pain, palpitations, shortness of breath, dyspnea on exertion, cough, lower extremity swelling, sore throat, fevers, chills, sweats, nausea, vomiting, diarrhea , constipation, abdominal pain, pelvic pain, blood in urine or stool, dysuria, urinary frequency or urgency, lightheadedness, dizziness, headache, imbalance, focal or generalized weakness, numbness or tingling in arms or legs, generalized arthralgias or myalgias, back or neck pain, or night sweats. The review of systems is otherwise negative other than for that already noted above, and at least 10 systems have been reviewed. Physical Exam Physical Exam: The patient is awake, alert and oriented 3, well developed and well nourished, has a large linear laceration on his nose with recent bleeding, otherwise sitting upright in bed and in no acute distress. HEENT--PERRL, EOMI, mucous membranes and oropharynx dry. Neck--supple. No JVD. No bruits. Thyroid normal, trachea midline, no adenopathy. Heart--normal S1 and S2. No murmurs, rubs or gallops. Lungs--clear bilaterally, no respiratory distress, no accessory muscle use. Abdomen--normal bowel sounds and soft. Nontender. Nondistended, no hernias or masses, no organomegaly. Extremities--no cyanosis or clubbing. No edema. There are good distal pulses b/l. Dermatologic--normal skin turgor, normal color, no abnormal lymph nodes, no rash. Neurologic--cranial nerves II through XII grossly intact. Rheumatologic--normal range of motion. Psychiatric--normal affect. Results & Data Results & Data Vital Signs (Past 12 Hours) Vital Signs Temp Pulse Resp BP Pulse Ox O2 Del Method 08/10/24 05:30 70 16 147/70 H 96 Room Air 08/10/24 05:00 67 20 151/81 H 95 Room Air 08/10/24 04:45 69 08/10/24 04:42 72 16 142/71 H 95 Room Air 08/10/24 03:43 96 Room Air 08/10/24 03:30 60 20 129/62 95 Room Air 08/10/24 03:25 62 08/10/24 03:16 95 Room Air 08/10/24 03:16 37.0 C 63 20 132/62 96 Room Air Laboratory Results Laboratory Results WBC 13.15 K/ul (4.8-10.8) H 08/10/24 03:30 RBC 4.97 M/uL (4.70-6.10) 08/10/24 03:30 Hgb 15.8 g/dl (14.0-18.0) 08/10/24 03:30 POC Hgb 15.0 g/dl (14.0-18.0) 08/10/24 03:54 Hct 45.5 % (42.0-52.0) 08/10/24 03:30 POC Hct 44 % (42-52) 08/10/24 03:54 MCV 91.5 fL (80.0-100.0) 08/10/24 03:30 MCH 31.8 pg (25.0-34.0) 08/10/24 03:30 MCHC 34.7 g/dL (32.0-36.0) 08/10/24 03:30 RDW Std Deviation 41.8 fL (36.4-46.3) 08/10/24 03:30 RDW Coeff of Marcial 12.6 % (11.5-14.5) 08/10/24 03:30 Plt Count 211 K/uL (130-400) 08/10/24 03:30 MPV 10.2 fL (9.4-12.4) 08/10/24 03:30 Immature Gran % (Auto) 0.4 % 08/10/24 03:30 Neut % (Auto) 68.8 % 08/10/24 03:30 Lymph % (Auto) 17.6 % 08/10/24 03:30 [place] % (Auto) 12.5 % 08/10/24 03:30 Eos % (Auto) 0.1 % 08/10/24 03:30 Baso % (Auto) 0.6 % 08/10/24 03:30 Neut # (Auto) 9.05 K/uL (1.40-6.50) H 08/10/24 03:30 Lymph # (Auto) 2.31 K/uL (1.20-3.40) 08/10/24 03:30 [place] # (Auto) 1.65 K/uL (0.11-0.59) H 08/10/24 03:30 Eos # (Auto) 0.01 K/uL (0.00-0.50) 08/10/24 03:30 Baso # (Auto) 0.08 K/uL (0.00-0.20) 08/10/24 03:30 Immature Gran # (Auto) 0.05 K/uL (0.01-0.20) 08/10/24 03:30 PT 11.0 Seconds (9.0-12.0) 08/10/24 03:43 INR 1.0 (0.9-1.1) 08/10/24 03:43 APTT 29 Seconds (21-31) 08/10/24 03:43 PTT Ratio 1.1 08/10/24 03:43 POC Sodium 135 mmol/L (135-144) 08/10/24 03:54 Sodium 136 mmol/L (136-145) 08/10/24 03:30 POC Potassium 3.6 mmol/L (3.3-5.0) 08/10/24 03:54 Potassium 3.2 mmol/L (3.5-5.1) L 08/10/24 03:30 POC Chloride 95 mmol/L (101-112) L 08/10/24 03:54 Chloride 96 mmol/L (98-107) L 08/10/24 03:30 Carbon Dioxide 29 mmol/L (21-32) 08/10/24 03:30 POC Total CO2 27 mmol/L (24-31) 08/10/24 03:54 Anion Gap 11 (3-11) 08/10/24 03:30 POC Anion Gap 18.0 mmol/L (16-25) 08/10/24 03:54 POC BUN 18 mg/dl (7-18) 08/10/24 03:54 BUN 18 mg/dl (6-23) 08/10/24 03:30 Creatinine 1.06 mg/dl (0.6-1.4) 08/10/24 03:30 POC Creatinine 1.1 mg/dl (0.6-1.3) 08/10/24 03:54 Est Cr Clr Drug Dosing 77.3 ml/min 08/10/24 03:30 eGFR 78.37 08/10/24 03:30 BUN/Creatinine Ratio 17.0 (10-20) 08/10/24 03:30 Glucose 137 mg/dl (70-99(Fasting)) H 08/10/24 03:30 POC Glucose (other) 133 mg/dl (70-99) H 08/10/24 03:54 Calcium 9.5 mg/dl (8.6-10.3) 08/10/24 03:30 POC Ioniz Calcium Eunice 1.04 mmol/l (1.12-1.32) L 08/10/24 03:54 Total Bilirubin 1.2 mg/dl (0.2-1.0) H 08/10/24 03:30 AST 28 U/L (13-39) 08/10/24 03:30 ALT 30 U/L (7-52) 08/10/24 03:30 Alkaline Phosphatase 88 U/L (34-104) 08/10/24 03:30 Troponin I High Sens 12.4 pg/ml (0-20) 08/10/24 03:30 Total Protein 8.0 gm/dl (6.0-8.3) 08/10/24 03:30 Albumin 4.7 gm/dl (3.4-5.0) 08/10/24 03:30 Globulin 3.3 gm/dl (2.5-4.0) 08/10/24 03:30 Albumin/Globulin Ratio 1.4 (0.9-2) 08/10/24 03:30 Lipase 24 U/L (11-82) 08/10/24 03:30 Adenovirus (PCR) Not Detected (NotDetected) 08/10/24 03:30 B. pertussis DNA (PCR) Not Detected (NotDetected) 08/10/24 03:30 B.parapertussis DNA PCR Not Detected (NotDetected) 08/10/24 03:30 C. pneumoniae DNA (PCR) Not Detected (NotDetected) 08/10/24 03:30 Coronavirus OC43 (PCR) Not Detected (NotDetected) 08/10/24 03:30 Coronavirus HKU1 (PCR) Not Detected (NotDetected) 08/10/24 03:30 Coronavirus 229E (PCR) Not Detected (NotDetected) 08/10/24 03:30 SARS-CoV-2 (PCR) DETECTED (NotDetected) A 08/10/24 03:30 Coronavirus NL63 (PCR) Not Detected (NotDetected) 08/10/24 03:30 Human Metapneumovir PCR Not Detected (NotDetected) 08/10/24 03:30 Influenza Type A (PCR) Not Detected (NotDetected) 08/10/24 03:30 Influenza Type B (PCR) Not Detected (NotDetected) 08/10/24 03:30 M. pneumoniae (PCR) Not Detected (NotDetected) 08/10/24 03:30 Parainfluenza 1 (PCR) Not Detected (NotDetected) 08/10/24 03:30 Parainfluenza 2 (PCR) Not Detected (NotDetected) 08/10/24 03:30 Parainfluenza 3 (PCR) Not Detected (NotDetected) 08/10/24 03:30 Parainfluenza 4 (PCR) Not Detected (NotDetected) 08/10/24 03:30 RSV (PCR) Not Detected (NotDetected) 08/10/24 03:30 Entero/Rhino (PCR) Not Detected (NotDetected) 08/10/24 03:30 Impressions Chest X-Ray 08/10/24 03:43 EXAM: XR chest 1V portable CLINICAL HISTORY: SYNCOPE. TECHNIQUE: An X-ray image of the chest is obtained in AP portable projection. COMPARISON: CT on 06/02/2022. FINDINGS: Pulmonary Parenchyma: No evidence of consolidation, collapse, or focal opacities. No pulmonary nodules are identified. No evidence of pleural effusion or pleural thickening. Heart and Mediastinum: Heart size and shape are normal. No mediastinal widening or masses. No hilar or mediastinal lymphadenopathy. Bony Thorax: Bony thorax appears intact without fractures or deformities. Soft Tissues: Soft tissues overlying the chest wall are unremarkable. IMPRESSION: 1. No acute cardiopulmonary abnormalities are identified. 2. No interval change in comparison with the prior CT. Electronically signed by Ai Oviedo 08-10-2024 05:[address] 08/10/24 03:44 EXAM: CT cervical spine wo con CLINICAL HISTORY: fall, multiple facial injuries, r/o neck trauma. TECHNIQUE: CT scan of the cervical spine was performed without the administration of intravenous contrast. Contiguous axial images were obtained from the skull base to the upper thoracic spine. Coronal and sagittal reformatted images were also reviewed. One of the following dose-reduction techniques was utilized for this exam. Automated exposure control, adjustment of the mA and/or kV according to patient size, and use of iterative reconstruction. COMPARISON: No previous studies are available for comparison. FINDINGS: No fracture lines, wedging, vertebral collapse Loss of cervical lordosis may indicate muscle spasmMultilevel degenerative changes of the cervical spine with narrowing of the intervertebral disc spaces associated with anterior and posterior marginal osteophytes. No lytic or sclerotic bony lesions Atlantoaxial osteoarthritic changes Mild multilevel facet arthropathic changes neurocentral arthropathy from C4-5 down to C6-7 causing degenerative corresponding neuroforaminal compromise C4-5 down to C6-7 posterior disc bulges indenting the cord and encroaching into both neural exit pathways and exiting nerve roots Better evaluation of disc disease requires further MRI No paraspinal masses IMPRESSION: 1. No fracture lines, wedging, vertebral collapse 2. Loss of cervical lordosis may indicate muscle spasm 3. Multilevel degenerative changes 4. Mild multilevel facet arthropathic changes 5. 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 C4-5 down to C6-7 posterior disc bulges encroaching into both exiting nerve roots 7. Better evaluation of disc disease requires further MRI. Electronically signed by Ai Oviedo 08-10-2024 05:[address] 08/10/24 03:44 EXAM: CT facial bones wo con CLINICAL HISTORY: fall, facial injuries, laceration down nasal area, painful teeth, r/o trauma. TECHNIQUE: CT scan of the maxillofacial region was performed without the administration of intravenous contrast. Contiguous axial images were obtained from the skull base to the mandible. Coronal and sagittal reformatted images were also reviewed. One of the following dose-reduction techniques was utilized for this exam. Automated exposure control, adjustment of the mA and/or kV according to patient size, and use of iterative reconstruction. COMPARISON: No previous studies are available for comparison. FINDINGS: Bones: Maxilla: The maxillary bones are intact without evidence of acute fracture, lytic or sclerotic lesions. No signs of maxillary sinus wall fractures. Mandible: The mandibular bone is intact with normal cortices and trabecular patterns. There is no evidence of fracture, osteomyelitis, or neoplastic lesion. Zygomatic Bones: The zygomatic arches are intact bilaterally without evidence of fracture or deformity. Nasal Bones and nasal cavity: Skin wound/ulcer is seen involving the nasal region right aspect associated with soft tissue swelling and edema. No definite displaced fractures. Orbital Angulo: The orbital angulo are intact with no evidence of fracture or bony erosion. Orbits: The orbits are normal in size and shape. The globes are symmetric and well-positioned with no evidence of proptosis. The extraocular muscles appear normal in size and symmetry. The optic nerves are normal in caliber and course with no signs of compression or lesion. No retro-orbital masses or abnormal fluid collections are observed. Paranasal Sinuses: Frontal Sinuses: The frontal sinuses are well-pneumatized and free of fluid or soft tissue masses. Ethmoid Sinuses: The ethmoid air cells are clear with no mucosal thickening or fluid levels. Maxillary Sinuses: The maxillary sinuses are well-pneumatized with no fluid levels, mucosal thickening, or masses. Sphenoid Sinuses: The sphenoid sinuses are clear with no abnormalities noted. Temporomandibular Joints (TMJ): The TMJs are symmetric and normal in appearance. The mandibular condyles are well-positioned within the glenoid fossae. There are no signs of dislocation, subluxation, or degenerative changes. The articular eminences are normal in contour. Soft Tissues: The rest of the soft tissues of the face, including the cheeks, lips, and submandibular regions, appear unremarkable. There are no masses, cysts, or abnormal fluid collections. The parotid and submandibular glands are normal in size and appearance without focal lesions. Additional Findings: There are no additional abnormal findings in the visualized soft tissue structures or bony elements. No signs of osteomyelitis or other infectious processes. IMPRESSION: 1. Skin wound/ulcer is seen involving the nasal region right aspect associated with soft tissue swelling and edema. 2. No acute fractures. [facility] was called at [phone] at 04:26 AM SPECIAL EDUCATION INSTRUCTOR, 08/10/2024, and ARNAV Hart was informed regarding the presence of important medical findings in the report. Electronically signed by Ai Oviedo 08-10-2024 05:[address] 08/10/24 03:44 EXAM: CT head/brain wo con CLINICAL HISTORY: Fall, multiple facial injuries, r/o head trauma TECHNIQUE: Axial non-contrast CT scan of the brain was performed from the skull base to the high parietal region with multiple reformats. One of the following dose reduction techniques were utilized for this exam: Automated exposure control, adjustment of the mA and/or kV according to patient size, use of iterative reconstruction. COMPARISON: None. FINDINGS: Brain Parenchyma: Normal attenuation of the cerebral hemispheres, cerebellum, and brainstem. No evidence of acute infarct, hemorrhage, or mass effect. No abnormal areas of hypo- or hyperattenuation. Ventricular System: Mildly prominent ventricular system suggestive of central involutional changes. No evidence of hydrocephalus or ventricular enlargement. Subarachnoid Spaces: Normal sulci and cisterns. No evidence of subarachnoid hemorrhage or extra-axial fluid collections. Cerebellum and Brainstem: Normal size and signal. No masses, lesions, or areas of abnormal signal. Orbits: Normal appearance of the globes, optic nerves, and extraocular muscles. No evidence of orbital masses or abnormal signal. Mastoid Air Cells: Clear mastoid air cells. No evidence of mastoiditis. Skull: Normal skull morphology. IMPRESSION: 1. Mildly prominent ventricular system suggestive of central involutional changes. 2. Rest of CT of the head without contrast is unremarkable with no acute intracranial abnromality. Electronically signed by Ai Oviedo 08-10-2024 05:23 AM Code Status & VTE Plan Code Status Full code VTE Prophylaxis Plan VTE Prophylaxis will be ordered: Yes PG Care Time/CCT Total # of Minutes Spent Total Time Spent with Patient: Total time spent is greater than 50% in coordination of care (as documented) at patient's floor/unit and/or counseling patient: Coding Level of Care Code 58536 INT INP/OBS CARE 3/75MIN Diagnoses Syncope and collapse R55 Ventricular tachycardia I47.20 Atrial fibrillation I48.91 Hypokalemia E87.6 Chronic anticoagulation Z79.01 Nasal laceration S01.21XA Hypertension I10 Hyperlipidemia E78.5 COVID-19 virus infection U07.1 Diarrhea due to COVID-19 U07.1; A08.39
--- NOTE | 2024-08-10 06:43 | Emergency Department Note ---
ED Visit Note I was asked to do the laceration repairs of this patient. Tetanus was updated per patient. Laceration Repair Location: Nasal bridge Total length: 6 cm Complexity: Simple Verbal consent was obtained after the risks and benefits were explained, including but not limited to bleeding, scarring, infection, pain, and bone/joint/nerve damage. At this time, the risks of the procedure are less than the risks of NOT performing the procedure. A time out was taken and the correct patient and site identified. The skin was prepped with betadine. The target area was anesthetized with 3 ml of 1% lidocaine without epinephrine. Copious irrigation was performed using nss. The skin was re-prepped with betadine and a sterile field set. The wound was explored for foreign bodies and none found. Examination revealed no injury to deep structures such as tendons, bone, or significant blood vessels. Debridement was not performed. The wound edges were approximated using 11, 6-0 simple interrupted nylon sutures. Hemostasis and excellent approximation was achieved. Antibacterial ointment and a sterile dressing applied. Detailed wound care instructions and signs and symptoms of infection reviewed with the pt. No complications and the patient tolerated the procedure well. Laceration Repair Location: Upper lip Total length: 2 cm irregular Complexity: Complex, through the philtrum Verbal consent was obtained after the risks and benefits were explained, including but not limited to bleeding, scarring, infection, pain, and bone/joint/nerve damage. At this time, the risks of the procedure are less than the risks of NOT performing the procedure. A time out was taken and the correct patient and site identified. The skin was prepped with betadine. The target area was anesthetized with 1 ml of 1% lidocaine without epinephrine. Copious irrigation was performed using nss. The skin was re-prepped with betadine and a sterile field set. The wound was explored for foreign bodies and none found. Examination revealed no injury to deep structures such as tendons, bone, or significant blood vessels. Debridement was not performed. The wound edges were approximated using 3, 6-0 simple interrupted nylon sutures. Hemostasis and excellent approximation was achieved. Antibacterial ointment and a sterile dressing applied. Detailed wound care instructions and signs and symptoms of infection reviewed with the pt. No complications and the patient tolerated the procedure well. .
[2024-08-10 06:55] LABS: Magnesium 1.9 mg/dl (1.7-2.4)
[2024-08-10] MEDS: NSS + 20MEQ KCL 20 MEQ/1,000 ML BAG IV STA (07:28)
[2024-08-10] MEDS ORDERED: ONDANSETRON INJ 2 MG/ML 2 ML VIAL IV PRN (08:23)
[2024-08-10] MEDS: REMDESIVIR 200 MG in SODIUM CHLORIDE 0.9% 210 ML IV STA (08:24)
[2024-08-10] MEDS: APIXABAN 5 MG TABLET PO SCH (09:30)
--- NOTE | 2024-08-10 09:33 | Cardiology Consultation ---
Date of Consultation August 10, 2024 Assessment & Plan (1) Syncope and collapse: (2) Ventricular tachycardia: (3) Paroxysmal atrial fibrillation: (4) S/P ablation of atrial fibrillation: (5) CAD (coronary artery disease): (6) Hypokalemia: Plan ASSESSMENT/PLAN: 1. Syncope: Etiology uncertain. Reportedly had ventricular tachycardia on outpatient monitor. Details are not known at the time of this note. Has systolic murmur on exam. Recommend echo to evaluate for significant valvular abnormality or LVOT obstruction. Continue telemetry. If no obvious structural abnormality or other etiology identified, would be concerning for arrhythmia as it was sudden without warning. Recommend electrophysiology evaluation. No driving. 2. Ventricular tachycardia: Details not known to me at the time of this note. His primary cardiology team will be available tomorrow to round and also would have knowledge of his outpatient testing. Correct electrolyte abnormalities (hypokalemia). If ventricular tachycardia while hospitalized, would recommend amiodarone. For now, continue beta-liam. 3. Paroxysmal atrial fibrillation: Underwent ablation in the past. Sinus rhythm today. Continue anticoagulation for stroke risk reduction. Had been on flecainide. Continue beta-liam. 4. CAD: Mild and nonobstructive per patient report. Risk factor modification. Continue statin therapy. 5. COVID: As per primary hospitalist service. 6. Disposition: [facility] cardiology will continue his cardiology care tomorrow. Plan of care communicated with primary hospitalist, Dr. Cuevas. Thank you for allowing me to participate in the care of your patient. Please call for any other questions or concerns. Sincerely, Janes Collins M.D. History of Present Illness Reason for Consultation: syncope and recently diagnosed VT Requesting Physician: Dr. Abbott Attending Physician: Sheila Cuevas MD History of Present Illness Mr. Friedman is a very pleasant 64-year-old gentleman with a history significant for mild nonobstructive CAD, ventricular tachycardia, paroxysmal atrial fibrillation s/p afib ablation, hypertension, and dyslipidemia. He follows with Dr. Leung of [facility]. Unfortunately, his outpatient cardiology records are not available for review at the time of today's consult. He reports that he underwent A-fib ablation years ago at [facility]. He continued to have A-fib burden on a paroxysmal basis but much improved from prior to the ablation. He had been on flecainide which was recently discontinued. He had outpatient monitor done through [facility] and he reports ventricular tachycardia. He has an appointment with Dr. Waters of [facility] electrophysiology this week in the outpatient setting to further discuss. He underwent diagnostic coronary angiography at [facility] on 07/31/2024 and reports a 30% stenosis in 1 vessel. He has not required PCI. He has had palpitations intermittently in the outpatient setting. He recalls an event that lasted approximately 16 hours in June, however palpitations are usually a few minutes, before spontaneously resolving. Symptoms occurred every 2 to 3 weeks. He has been experiencing upper respiratory infection symptoms, but no fever. He had chills the other day. He was ambulating in his home earlier this morning and had a syncopal event. It awakened his . He had no symptoms prior to syncope such as palpitations, chest pain, shortness of breath, or lightheadedness. He does not recall the next event, however he states that he was assisted to the restroom by his son where he had another syncopal event. With the first syncopal event, he was incontinent to stool and urine. He feels back to baseline currently other than the fact that his traumatic facial injuries are painful and he has difficulty breathing through his nose due to clot burden in his nostrils. At home, he takes Eliquis and metoprolol. Flecainide and warfarin had been discontinued recently. Review of systems: As above. Family history: Noncontributory. Social history: Currently smokes cigarettes, much less than 1 pack/day currently. Denies significant alcohol or drug abuse. Lives at home with his and son. Has 2 sons. He was unaccompanied in his hospital room. Allergies Allergy/AdvReac Type Severity Reaction Status Date / Time No Known Allergies Allergy Unverified 11/28/16 08:13 Home Medications Medication Instructions Recorded Confirmed Type Flecainide (Tambocor) 25 mg PO BID #0 tabs 11/28/16 History HYDROCHLOROTHIAZIDE (HCTZ) 25 mg PO DAILY #0 tabs 11/28/16 History Metoprolol Succ (Toprol Xl) 25 mg PO BID #30 tabs 11/28/16 History (Toprol-Xl) Pravastatin (Pravachol ) 20 mg PO PM #0 tabs 11/28/16 History Warfarin Sod (Jantoven) 10 mg PO 5XWK #0 tabs 11/28/16 History Warfarin Sod (Jantoven) 12.5 mg PO 2XWK #0 tabs 11/28/16 History Problem List (Updated 08/10/24 @ 13:59 by Bharat Collins MD) CAD (coronary artery disease) Paroxysmal atrial fibrillation Diarrhea due to COVID-19 COVID-19 virus infection Chronic anticoagulation Hypokalemia Hyperlipidemia Hypertension Atrial fibrillation Ventricular tachycardia Nasal laceration Syncope and collapse Patient History Surgical History (Updated 08/10/24 @ 13:59 by Bharat Collins MD) S/P ablation of atrial fibrillation Social History Smoking Status: Current every day smoker Tobacco Type: Cigarettes Cigarettes Per Day: 3; Hx Alcohol Use: No Hx Substance Use: No Preferred Language: Libyan Communication Ability: Effective Tie Loader Required: No Beliefs That Will Affect Care: None Current Living Situation: Spouse Current Living Situation Comment: 1 story house Feels Safe at Home: Yes Assistive Devices: None Physical Exam Physical Exam: Gen.: No acute distress. Alert and oriented. HEENT: Anicteric sclera. Swollen/injured nose. Neck: No JVD. No bruits. Normal carotid upstrokes bilaterally. Cardiac: Regular. Normal S1-S2. 2/6 systolic murmur. Pulmonary: Clear to auscultation bilaterally without wheezes, rales, or rhonchi. Abdomen: Soft, nontender, nondistended, with normoactive bowel sounds. No bruits noted. Extremities: 2+ radial pulses bilaterally. 2+ posterior tibialis pulses bilaterally. No edema or cyanosis. Results & Data Vital Signs (Past 12 Hours) Vital Signs Temp Pulse Resp BP Pulse Ox O2 Del Method 08/10/24 07:33 75 19 127/76 96 Room Air 08/10/24 05:30 70 16 147/70 H 96 Room Air 08/10/24 05:00 67 20 151/81 H 95 Room Air 08/10/24 04:45 69 08/10/24 04:42 72 16 142/71 H 95 Room Air 08/10/24 03:43 96 Room Air 08/10/24 03:30 60 20 129/62 95 Room Air 08/10/24 03:25 62 08/10/24 03:16 95 Room Air 08/10/24 03:16 37.0 C 63 20 132/62 96 Room Air Intake & Output 08/08/24 08/09/24 08/10/24 08/11/24 06:59 06:59 06:59 06:59 Intake Total 100 / 100 250 / 250 Balance 100 / 100 250 / 250 Weight 195 lb 15.855 oz 187 lb Laboratory Results Laboratory Results - last 24 hr 08/10/24 08/10/24 08/10/24 03:30 03:43 03:54 WBC 13.15 H RBC 4.97 Hgb 15.8 POC Hgb 15.0 Hct 45.5 POC Hct 44 MCV 91.5 MCH 31.8 MCHC 34.7 RDW Std Deviation 41.8 RDW Coeff of Marcial 12.6 Plt Count 211 MPV 10.2 Immature Gran % (Auto) 0.4 Neut % (Auto) 68.8 Lymph % (Auto) 17.6 [place] % (Auto) 12.5 Eos % (Auto) 0.1 Baso % (Auto) 0.6 Neut # (Auto) 9.05 H Lymph # (Auto) 2.31 [place] # (Auto) 1.65 H Eos # (Auto) 0.01 Baso # (Auto) 0.08 Immature Gran # (Auto) 0.05 PT 11.0 INR 1.0 APTT 29 PTT Ratio 1.1 POC Sodium 135 Sodium 136 POC Potassium 3.6 Potassium 3.2 L POC Chloride 95 L Chloride 96 L Carbon Dioxide 29 POC Total CO2 27 Anion Gap 11 POC Anion Gap 18.0 POC BUN 18 BUN 18 Creatinine 1.06 POC Creatinine 1.1 Est Cr Clr Drug Dosing 77.3 eGFR 78.37 BUN/Creatinine Ratio 17.0 Glucose 137 H POC Glucose (other) 133 H Calcium 9.5 POC Ioniz Calcium Eunice 1.04 L Magnesium 1.9 Total Bilirubin 1.2 H AST 28 ALT 30 Alkaline Phosphatase 88 Troponin I High Sens 12.4 Total Protein 8.0 Albumin 4.7 Globulin 3.3 Albumin/Globulin Ratio 1.4 Lipase 24 Adenovirus (PCR) Not Detected B. pertussis DNA (PCR) Not Detected B.parapertussis DNA PCR Not Detected C. pneumoniae DNA (PCR) Not Detected Coronavirus OC43 (PCR) Not Detected Coronavirus HKU1 (PCR) Not Detected Coronavirus 229E (PCR) Not Detected SARS-CoV-2 (PCR) DETECTED A Coronavirus NL63 (PCR) Not Detected Human Metapneumovir PCR Not Detected Influenza Type A (PCR) Not Detected Influenza Type B (PCR) Not Detected M. pneumoniae (PCR) Not Detected Parainfluenza 1 (PCR) Not Detected Parainfluenza 2 (PCR) Not Detected Parainfluenza 3 (PCR) Not Detected Parainfluenza 4 (PCR) Not Detected RSV (PCR) Not Detected Entero/Rhino (PCR) Not Detected Diagnostic Findings History and physical report reviewed. Labs reviewed and notable for normal high-sensitivity troponin x 1, hypokalemia, reasonable renal function, normal magnesium, normal transaminase levels, mild leukocytosis, normal hemoglobin. TSH mildly elevated. Chest x-ray 08/10/2024: No acute cardiopulmonary abnormalities. Telemetry personally reviewed: Sinus rhythm. Atrial triplet. No ventricular arrhythmia or significant pauses. No high-grade AV block. Medications Administered Current Inpatient Medications Acetaminophen (Acetaminophen 325 Mg Tab) 650 mg PO Q4H PRN PRN Reason: Pain or Fever Stop: 09/09/24 08:22 Apixaban (Apixaban 5 Mg Tablet) 5 mg PO BID YOEL Stop: 09/09/24 08:59 Last Admin: 08/10/24 09:30 Dose: 5 mg Remdesivir 100 mg/ Sodium (Chloride) 250 mls @ 250 mls/hr IV Q24H YOEL Stop: 08/14/24 12:59 Potassium Chloride/Sodium Chloride (Normal Saline W/20 Meq Kcl) 20 meq in 1,000 mls @ 100 mls/hr IV .Q10H STA Stop: 08/10/24 16:46 Last Admin: 08/10/24 07:28 Dose: 100 mls/hr Metoprolol Succinate (Metoprolol Succ 50mg Ext Rel Tab) 37.5 mg PO HS [facility] Stop: 09/09/24 20:59 Ondansetron HCl (Ondansetron Inj 2 Mg/Ml 2 Ml Vial) 4 mg IV Q6H PRN PRN Reason: Nausea Stop: 09/09/24 08:22 Rosuvastatin Calcium (Rosuvastatin Calcium 20 Mg Tab) 40 mg PO HS [facility] Stop: 09/09/24 20:59 PG Care Time/CCT Total # of Minutes Spent Total Time Spent with Patient: Total time spent is greater than 50% in coordination of care (as documented) at patient's floor/unit and/or counseling patient: Coding Level of Care Code 73369 INT INP/OBS CARE 375MIN Diagnoses Syncope and collapse R55 Ventricular tachycardia I47.20 Paroxysmal atrial fibrillation I48.0 S/P ablation of atrial fibrillation Z98.890; Z86.79 CAD (coronary artery disease) I25.10 Hypokalemia E87.6
[2024-08-10 10:12] LABS: Thyroid Stimulating Hormone 7.012 uIu/ml (0.300-4.500)
--- NOTE | 2024-08-10 10:14 | Hospitalist Progress Note ---
Date of Service August 10, 2024 Assessment & Plan (1) Syncope and collapse: Plan: Cardiac rhythm monitoring and a 2-D echocardiogram. Will await cardiology input. Has recently worn a monitor with Dr. Leung that identified ventricular tachycardia. Underwent cardiac catheterization at [facility] on 07/31 which showed an isolated 30% lesion with no intervention There is a follow-up appointment at [facility] on 08/14 to see EPS specialist In the interim, the patient has come to the emergency department with a syncopal episode that occurred rapidly enough that he was unable to break his fall. Patient had been on flecainide 25 mg twice daily in the past which was discontinued Current medications include metoprolol succinate ER 37.5 mg at bedtime, and apixaban 5 mg p.o. twice daily, however previously been on warfarin. He presently is on hydrochlorothiazide 25 mg every morning, which will be held due to hypokalemia Potassium is 3.2 on admission, received 10 mEq K rider in the ED, and placed on NSS + KCl 20 mill equivalents at 100 mL/h x 1 L (2) Ventricular tachycardia: Plan: See 1 (3) Atrial fibrillation: Plan: See 1 (4) Hypokalemia: Plan: Potassium is 3.2 on admission, received 10 mEq K rider in the ED, and placed on NSS + KCl 20 mill equivalents at 100 mL/h x 1 L Repeat K 3.6 (5) Chronic anticoagulation: Plan: Eliquis 5mg BID (6) Nasal laceration: Plan: Sutures intact, no active bleeding. (7) Hyperlipidemia: Plan: Continue rosuvastatin 40 mg at bedtime, previously on pravastatin 20 at bedtime (8) COVID-19 virus infection: Plan: COVID-19 infection/gastroenteritis- Likely a contributing cause to diarrhea and hypokalemia Continue Remdesivir (9) Diarrhea due to COVID-19: Plan: Occurred x1 during fall, resolved per patient. Plan Recheck TSH outpatient. Admission and Anticipated Discharge Date Admission Date: August 10, 2024 Subjective Alvaro is resting in bed this morning. Reports nasal congestion and intermittent dry cough. Otherwise, states that he feels well. Denies headache, visual changes, sore throat, chest pain, dizziness, lightheadedness, abdominal pain, diarrhea, urinary issues, swelling. He states he had a tactile fever on Sunday and "couldn't get warm", but by Sunday that had resolved. We discussed his syncopal episode that occurred yesterday - reports that he went to the kitchen for some medication. Reports he wasn't feeling well. And then he was told by family he fell in the living room. He was incontinent of bowel and bladder at that time, but requested to go to the bathroom because he felt like he still had to go. His son took him to the bathroom, at which time he fell again and hit his face on the tub. He doesn't remember any of this happening, the last thing he remembers is going to the kitchen and then waking up in the bathroom. Review of Systems Constitutional: no fever, no chills, no sweats, no body aches and no fatigue Eyes: no diplopia and no problem reported Ear, Nose, Mouth, Throat: + nasal congestion, + nasal trauma and + dry mouth; no dizziness, no sore throat and no pain with swallowing Respiratory: + cough (Dry, non-productive) Cardiovascular: no chest pain, no dyspnea at rest, no dyspnea on exertion and no edema Gastrointestinal: + fecal incontinence (Yesterday during s yncopal episode x1, no issues since); no abdominal pain, no nausea, no vomiting, no constipation and no diarrhea/loose stools Genitourinary: + urinary incontinence (Yesterday during syncopal episode x1, no issues since) Integumentary: no rash Neurologic: no headache(s) Physical Exam Constitutional: WD/WN, vitals as above Eyes: PERRL, conjunctivae normal, anicteric sclerae ENMT: Nose: + external nose abnormality (Sutures in place, no active bleeding, dried blood in nares) Respiratory: normal respiratory effort; no respiratory distress Au scultation: lungs clear to auscultation bilaterally Cardiovascular: RRR, no murmur, no edema Gastrointestinal (Abdomen): Inspection/Auscultation: normal bowel sounds Percussion/Palpation: abdomen soft; abdomen nontender Skin: no rashes, warm and dry Psychiatric: A+Ox3, euthymic affect Results & Data Results & Data Vital Signs (Past 12 Hours) Vital Signs Temp Pulse Resp BP BP Pulse Ox O2 Del Method 08/10/24 10:01 Room Air 08/10/24 09:48 37 C 18 141/82 H 98 Room Air 08/10/24 07:33 75 19 127/76 96 Room Air 08/10/24 05:30 70 16 147/70 H 96 Room Air 08/10/24 05:00 67 20 151/81 H 95 Room Air 08/10/24 04:45 69 08/10/24 04:42 72 16 142/71 H 95 Room Air 08/10/24 03:43 96 Room Air 08/10/24 03:30 60 20 129/62 95 Room Air 08/10/24 03:25 62 08/10/24 03:16 95 Room Air 08/10/24 03:16 37.0 C 63 20 132/62 96 Room Air Laboratory Results 08/10/24 08/10/24 08/10/24 Range/Units Unknown 03:54 03:43 WBC (4.8-10.8) K/ul RBC (4.70-6.10) M/uL Hgb (14.0-18.0) g/dl POC Hgb 15.0 (14.0-18.0) g/dl Hct (42.0-52.0) % POC Hct 44 (42-52) % MCV (80.0-100.0) fL MCH (25.0-34.0) pg MCHC (32.0-36.0) g/dL RDW Std Deviation (36.4-46.3) fL RDW Coeff of Marcial (11.5-14.5) % Plt Count (130-400) K/uL MPV (9.4-12.4) fL Immature Gran % (Auto) % Neut % (Auto) % Lymph % (Auto) % Randolph % (Auto) % Eos % (Auto) % Baso % (Auto) % Neut # (Auto) (1.40-6.50) K/uL Lymph # (Auto) (1.20-3.40) K/uL Randolph # (Auto) (0.11-0.59) K/uL Eos # (Auto) (0.00-0.50) K/uL Baso # (Auto) (0.00-0.20) K/uL Immature Gran # (Auto) (0.01-0.20) K/uL PT 11.0 (9.0-12.0) Seconds INR 1.0 (0.9-1.1) APTT 29 (21-31) Seconds PTT Ratio 1.1 POC Sodium 135 (135-144) mmol/L Sodium (136-145) mmol/L POC Potassium 3.6 (3.3-5.0) mmol/L Potassium (3.5-5.1) mmol/L POC Chloride 95 L (101-112) mmol/L Chloride (98-107) mmol/L Carbon Dioxide (21-32) mmol/L POC Total CO2 27 (24-31) mmol/L Anion Gap (3-11) POC Anion Gap 18.0 (16-25) mmol/L POC BUN 18 (7-18) mg/dl BUN (6-23) mg/dl Creatinine (0.6-1.4) mg/dl POC Creatinine 1.1 (0.6-1.3) mg/dl Est Cr Clr Drug Dosing ml/min eGFR BUN/Creatinine Ratio (10-20) Glucose (70-99(Fasting)) mg/dl POC Glucose (other) 133 H (70-99) mg/dl Calcium (8.6-10.3) mg/dl POC Ioniz Calcium Eunice 1.04 L (1.12-1.32) mmol/l Magnesium (1.7-2.4) mg/dl Total Bilirubin (0.2-1.0) mg/dl AST (13-39) U/L ALT (7-52) U/L Alkaline Phosphatase (34-104) U/L Troponin I High Sens (0-20) pg/ml Total Protein (6.0-8.3) gm/dl Albumin (3.4-5.0) gm/dl Globulin (2.5-4.0) gm/dl Albumin/Globulin Ratio (0.9-2) Lipase (11-82) U/L TSH (0.300-4.500) uIu/ml Urine Color Yellow Urine Appearance Clear (Clear) Urine pH 5.0 (4.5-7.5) Ur Specific [place] 1.037 H (1.000-1.030) Urine Protein 1+ H (Negative) Urine Glucose (UA) Negative (Negative) Urine Ketones 1+ H (Negative) Urine Blood Negative (Negative) Urine Nitrite Negative (Negative) Urine Bilirubin Negative (Negative) Urine Urobilinogen Negative (Negative) Ur Leukocyte Esterase Negative (Negative) Urine WBC (Auto) 0-5 (0-5) /hpf Urine RBC (Auto) 0-2 (0-2) /hpf U Hyaline Cast (Auto) 3-5 H (0-2) /lpf U Epithel Cells (Auto) 0-2 (0-2) /hpf Urine Bacteria (Auto) None Seen (None Seen) Urine Mucus Present A (None Prsent) Adenovirus (PCR) (NotDetected) B. pertussis DNA (PCR) (NotDetected) B.parapertussis DNA PCR (NotDetected) C. pneumoniae DNA (PCR) (NotDetected) Coronavirus OC43 (PCR) (NotDetected) Coronavirus HKU1 (PCR) (NotDetected) Coronavirus 229E (PCR) (NotDetected) SARS-CoV-2 (PCR) (NotDetected) Coronavirus NL63 (PCR) (NotDetected) Hepatitis C Ab Screen Human Metapneumovir PCR (NotDetected) Influenza Type A (PCR) (NotDetected) Influenza Type B (PCR) (NotDetected) M. pneumoniae (PCR) (NotDetected) Parainfluenza 1 (PCR) (NotDetected) Parainfluenza 2 (PCR) (NotDetected) Parainfluenza 3 (PCR) (NotDetected) Parainfluenza 4 (PCR) (NotDetected) RSV (PCR) (NotDetected) Entero/Rhino (PCR) (NotDetected) 08/10/24 Range/Units 03:30 WBC 13.15 H (4.8-10.8) K/ul RBC 4.97 (4.70-6.10) M/uL Hgb 15.8 (14.0-18.0) g/dl POC Hgb (14.0-18.0) g/dl Hct 45.5 (42.0-52.0) % POC Hct (42-52) % MCV 91.5 (80.0-100.0) fL MCH 31.8 (25.0-34.0) pg MCHC 34.7 (32.0-36.0) g/dL RDW Std Deviation 41.8 (36.4-46.3) fL RDW Coeff of Marcial 12.6 (11.5-14.5) % Plt Count 211 (130-400) K/uL MPV 10.2 (9.4-12.4) fL Immature Gran % (Auto) 0.4 % Neut % (Auto) 68.8 % Lymph % (Auto) 17.6 % Randolph % (Auto) 12.5 % Eos % (Auto) 0.1 % Baso % (Auto) 0.6 % Neut # (Auto) 9.05 H (1.40-6.50) K/uL Lymph # (Auto) 2.31 (1.20-3.40) K/uL Randolph # (Auto) 1.65 H (0.11-0.59) K/uL Eos # (Auto) 0.01 (0.00-0.50) K/uL Baso # (Auto) 0.08 (0.00-0.20) K/uL Immature Gran # (Auto) 0.05 (0.01-0.20) K/uL PT (9.0-12.0) Seconds INR (0.9-1.1) APTT (21-31) Seconds PTT Ratio POC Sodium (135-144) mmol/L Sodium 136 (136-145) mmol/L POC Potassium (3.3-5.0) mmol/L Potassium 3.2 L (3.5-5.1) mmol/L POC Chloride (101-112) mmol/L Chloride 96 L (98-107) mmol/L Carbon Dioxide 29 (21-32) mmol/L POC Total CO2 (24-31) mmol/L Anion Gap 11 (3-11) POC Anion Gap (16-25) mmol/L POC BUN (7-18) mg/dl BUN 18 (6-23) mg/dl Creatinine 1.06 (0.6-1.4) mg/dl POC Creatinine (0.6-1.3) mg/dl Est Cr Clr Drug Dosing 77.3 ml/min eGFR 78.37 BUN/Creatinine Ratio 17.0 (10-20) Glucose 137 H (70-99(Fasting)) mg/dl POC Glucose (other) (70-99) mg/dl Calcium 9.5 (8.6-10.3) mg/dl POC Ioniz Calcium Eunice (1.12-1.32) mmol/l Magnesium 1.9 (1.7-2.4) mg/dl Total Bilirubin 1.2 H (0.2-1.0) mg/dl AST 28 (13-39) U/L ALT 30 (7-52) U/L Alkaline Phosphatase 88 (34-104) U/L Troponin I High Sens 12.4 (0-20) pg/ml Total Protein 8.0 (6.0-8.3) gm/dl Albumin 4.7 (3.4-5.0) gm/dl Globulin 3.3 (2.5-4.0) gm/dl Albumin/Globulin Ratio 1.4 (0.9-2) Lipase 24 (11-82) U/L TSH 7.012 H (0.300-4.500) uIu/ml Urine Color Urine Appearance (Clear) Urine pH (4.5-7.5) Ur Specific [place] (1.000-1.030) Urine Protein (Negative) Urine Glucose (UA) (Negative) Urine Ketones (Negative) Urine Blood (Negative) Urine Nitrite (Negative) Urine Bilirubin (Negative) Urine Urobilinogen (Negative) Ur Leukocyte Esterase (Negative) Urine WBC (Auto) (0-5) /hpf Urine RBC (Auto) (0-2) /hpf U Hyaline Cast (Auto) (0-2) /lpf U Epithel Cells (Auto) (0-2) /hpf Urine Bacteria (Auto) (None Seen) Urine Mucus (None Prsent) Adenovirus (PCR) Not Detected (NotDetected) B. pertussis DNA (PCR) Not Detected (NotDetected) B.parapertussis DNA PCR Not Detected (NotDetected) C. pneumoniae DNA (PCR) Not Detected (NotDetected) Coronavirus OC43 (PCR) Not Detected (NotDetected) Coronavirus HKU1 (PCR) Not Detected (NotDetected) Coronavirus 229E (PCR) Not Detected (NotDetected) SARS-CoV-2 (PCR) DETECTED A (NotDetected) Coronavirus NL63 (PCR) Not Detected (NotDetected) Hepatitis C Ab Screen Pending Human Metapneumovir PCR Not Detected (NotDetected) Influenza Type A (PCR) Not Detected (NotDetected) Influenza Type B (PCR) Not Detected (NotDetected) M. pneumoniae (PCR) Not Detected (NotDetected) Parainfluenza 1 (PCR) Not Detected (NotDetected) Parainfluenza 2 (PCR) Not Detected (NotDetected) Parainfluenza 3 (PCR) Not Detected (NotDetected) Parainfluenza 4 (PCR) Not Detected (NotDetected) RSV (PCR) Not Detected (NotDetected) Entero/Rhino (PCR) Not Detected (NotDetected) PG Care Time/CCT Total # of Minutes Spent Total Time Spent with Patient: Total time spent is greater than 50% in coordination of care (as documented) at patient's floor/unit and/or counseling patient: [place] [address] SUB INP/OBS CARE 2/35MIN Patient Type Established Medical Decision Making Moderate Complexity Diagnoses Syncope and collapse R55 Ventricular tachycardia I47.20 Atrial fibrillation I48.91 Hypokalemia E87.6 Chronic anticoagulation Z79.01 Nasal laceration S01.21XA Hyperlipidemia E78.5 COVID-19 virus infection U07.1 Diarrhea due to COVID-19 U07.1; A08.39
[2024-08-10] MEDS: ACETAMINOPHEN 325 MG TAB PO PRN (11:13)
[2024-08-10 11:36] LABS: Appearance Urine Clear (Clear); Bacteria Urine Automated None Seen (None Seen); Bilirubin Urine Negative (Negative); Blood Urine Negative (Negative); Color Urine Yellow; Epithelial Cell Urine Auto 0-2 /hpf (0-2); Glucose Urine UA Negative (Negative); Ketones Urine 1+ (Negative); Leukocyte Esterase Urine Negative (Negative); Mucus Urine Present (None Prsent); Nitrite Urine Negative (Negative); Protein Urine 1+ (Negative); RBC Urine Automated 0-2 /hpf (0-2); Specific Gravity Urine 1.037 (1.000-1.030); Urobilinogen Urine Negative (Negative); WBC Urine Automated 0-5 /hpf (0-5)
--- OUTSIDE RECORDS SUMMARY | 2024-08-10 12:51 | External Medical Summary | Continuity of Care Document ---
Author Name Unknown Organization [facility] [address] [facility] Address [address] [place] [address] [phone] Care Team Providers Care Cake Puller Name Role Phone Milly Lynn Primary Care Physician [phone] [facility] [id number] Date(s): 07/11/24 - 07/11/24 [facility] [address], [address] [place] [address] [phone] Discharge Disposition: Home or Self Care Attending Physician: MARIO Garcia Sarah A Referring Physician: MARIO Garcia Sarah A Allergies, Adverse Reactions, Alerts No Known Allergies Medications Chantix 0.5 mg oral tablet Start: 06/24/24 9:44:00 AM EDT, see instructions, Disp# 11 tab, Initial Dose: Take 1 tab (0.5 mg) by mouth every day for 3 days; then take 1 tab (0.5 mg) by mouth twice a day (days 4-7); then start maintenance dose., Pharmacy: [id number] Start Date: 06/24/24 Status: Ordered Chantix 1 mg oral tablet Start: 06/24/24 9:44:00 AM EDT, 1 tab, PO, bid, Disp# 180 tab, Refills: 0, start 8 days after initial dose pack, Pharmacy: [id number] Start Date: 06/24/24 Status: Ordered Eliquis 5 mg oral tablet Start: 09/20/23 9:46:00 AM EST, See Instructions, Disp# 180 tab, Refills: 3, TAKE 1 TABLET BY MOUTH TWICE DAILY, Pharmacy: [id number] Start Date: 09/20/23 Status: Ordered hydroCHLOROthiazide 25 mg oral tablet Start: 09/20/23 9:46:00 AM EST, See Instructions, Disp# 90 tab, Refills: 3, TAKE 1 TABLET BY MOUTH ONCE DAILY, Pharmacy: [id number] Start Date: 09/20/23 Status: Ordered Metoprolol Succinate ER 25 mg oral tablet, extended release Start: 07/09/24 3:19:00 PM EST, 1.5 tab, PO, Daily, Disp# 135 tab, Refills: 3, other Start Date: 07/09/24 Status: Ordered rosuvastatin 40 mg oral tablet Start: 06/25/24 10:16:00 AM EDT, 1 tab, PO, qhs, Disp# 90 tab, Refills: 3, Note to Pharmacy: new dose, Pharmacy: [id number] Start Date: 06/25/24 Status: Ordered Xanax 0.5 mg oral tablet Start: 09/26/19 2:50:00 PM EST, 1 tab, PO, bid, PRN: as needed for anxiety Start Date: 09/26/19 Status: Ordered Problem List Condition Confirmation Course Effective Dates Status H ealth Status Informant Family history of ischemic heart disease Confirmed Active HTN (hypertension) Confirmed Active Hyperlipidemia Confirmed Active Paroxysmal atrial fibrillation Confirmed Active Atrial fibrillation Confirmed Active Postprocedural state finding Confirmed Active Renal artery stenosis Confirmed Active Tobacco abuse Confirmed Active Weight disorder Confirmed Active Procedures Procedure Date Related Diagnosis Body Site Status Colonoscopy 1, 2 07/09/20 Complete d Catheter ablation for cardia c arrhythmia 07/07/13 Completed Renal artery stent placement 3 Completed 1COLO to cecum, 4 mmm polyp HF cold snared, DC polyp 10 mm hot snare and clip, 2 rectal polyps 2-3 mm cold forceps, hemorrhoids, small condyloma 2Pathology results: A) Splenic flexure polyp, polypectomy: tubular adenoma. B) Descending colon polyp, polypectomy: hyperplastic polyp C) Rectal polyp, polypectomy: segments of hyperplastic polyp. Repeat in 3 years. 3January 2013 Results Radiology Reports * Exam Date Time Procedure Performing Provider Status 07/11/24 11:47 AM Echo Stress, Exercise Kierra Katz; Final Notes: (Echo Stress, Exercise) Reason For Exam: vtach, afib Echo Stress, Exercise Report Signatures Stress ECG Finalized by Dr. Kirk Leung MD on 07/11/2024 05:52 PM Echo Finalized by Dr. Kirk Leung MD on 07/11/2024 05:52 PM [place] Act 112: Yes - Discussed with patient Summary 1. Borderline positive exercise ECG for ischemia. 2. 0.5-1mm upsloping ST depression 2/3/AVF and V4-V6 with [address] elevation in AVR. 3. Negative Exercise Stress Echocardiogram for ischemia at 81 % MPHR. 4. Pt remained on metoprolol. 5. Given borderline ECG and increased ventricular ectopy (couplets and triplets) with exercise and during immediate recovery, further diagnostic testing may be warranted. 6. Heart rate recovery 34 beats at 1 minute. 7. Above average exercise tolerance for age and gender, 120% of predicted, achieving 10.1 METs. Supervising: Radha Oakley RN BMI: 25.77 Patient Info Name: CARLA COELLO Age: 64 years : 1960 Gender: Male Ht: 183 cm Wt: 86 kg BSA: 2.10 m2 Heart Rhythm: Sinus Bradycardia Technical Quality: Good Exam Date: 07/11/2024 11:21 AM Exam Location: [facility] Patient Status: Outpatient Staff Ordering Physician: Sheila Garcia Earth Sciences Professor: Kierra Katz RDCS, RVT Attending Physician: Sheila Garcia Study Info CPT 48464 - Indications I472 - Ventricular tachycardia Procedure(s) * An Exercise stress echocardiogram was performed. Exam Type: Exercise Stress ECG Summary Borderline positive exercise ECG for ischemia. Protocol: Johnnie Rest HR: 50 bpm Peak HR: 126 bpm Rest Sys BP: 130 mmHg Peak Sys BP: 198 mmHg Max Pred HR: 156 bpm % Max Pred HR: 81 % Target HR: 133 bpm Max RPP: 24,948 bpm*mmHg Gould Score: 4 Target HR Summary: Patient's target heart rate was achieved BP Response: Patient exhibited a hypertensive response with stress Termination Reason: Dyspnea Cardiac Symptoms: Dyspnea Max ST Seg Deviation: 1.00 mm Total Time: 8 min : 31 sec Rest Hyatt BP: 74 mmHg Peak Hyatt BP: 68 mmHg Angina Score: None Total METS: 10.10 Stress ECG Details Resting ECG Sinus bradycardia. 0.5-1mm upsloping ST depression 2/3/AVF and V4-V6 with [address] elevation in AVR. Stress ECG Borderline ST depression - inferolateral leads 0.5-[address] depression. Arrhythmias Frequent PACs. Frequent PVCs. Ventricular couplets. Non-sustained ventricular tachycardia (3-5 beats). Multiple short runs of A tach. Stress Echo Findings Left Ventricle Left ventricle becomes smaller and more vigorous with exercise. Normal LV wall motion response to exercise. Normal augmentation of all wall segments without evidence of ischemia with stress. Left Ventricle Normal left ventricular size and systolic function with no regional wall motion abnormalities at rest. Resting ejection fraction as calculated by Biplane Simpsons method is 65%. No left ventricular hypertrophy. Ventricles Name Value Normal LV Dimensions 2D/MM IVS Diastolic Thickness (2D) 0.9 cm 0.6-1.0 LVID Diastole (2D) 4.5 cm 3.6-5.6 LVIW Diastolic Thickness (2D) 0.9 cm 0.6-1.0 LVID Systole (2D) 2.7 cm 2.5-4.0 LV Mass (2D Cubed) 136.79 g 88.00-224.00 LV Mass Index (2D Cubed) 0.01 g/cm2 0.00-0.01 Relative Wall Thickness (2D) 0.42 LV Fractional Shortening/Ejection Fraction 2D/MM LV Fractional Shortening (2D) 40 % 25-43 LV Diastolic Volume (4C MOD) 95 ml LV Diastolic Volume (2C MOD) 100 ml LV Diastolic Volume (BP MOD) 99 ml 62-150 LV Diastolic Volume Index (BP MOD) 46.87 ml/m2 34.00-74.00 LV Systolic Volume (BP MOD) 34 ml 21-61 LV Systolic Volume Index (BP MOD) 15.99 ml/m2 11.00-31.00 LV EF (BP MOD) 65 % 57-68 LV SV (BP MOD) 64.90 ml LV SI (BP MOD) 0.03 l/m2 LV End Diastolic Volume (BP A-L) 97.97 ml LV End Systolic Volume (BP A-L) 32.82 ml LV EF (BP A-L) 66 % Final Signed by:DO Leung Jason D Signed (Electronic Signature):07/11/2024 11:21 Social History Social History Type Response Smoking Status Current every day [facility] smoker Sex Male Sex Representation Male (finding) Patient Care team information Care Team Personnel Name: MD Sahne, Milly Position: Referring Member Role: Primary Care Provider Address: [facility] Internal Medicine [address] [place] [address] Care Team Related Persons Name: LEILA COELLO Name: LEILA COELLO Name: LEILA COELLO
--- OUTSIDE RECORDS SUMMARY | 2024-08-10 12:51 | External Medical Summary | Continuity of Care Document ---
Author Name Unknown Organization [facility] Address [address] [place] [id number] Care Team Providers Care Director Of Emergency Nursing Name Role Phone Milly Lynn Primary Care Physician [phone] [id number] Date(s): 07/31/24 - 07/31/[address] [phone] Encounter Diagnosis Atherosclerotic heart disease of [place] coronary artery without angina pectoris (Final) - Nonrheumatic aortic (valve) stenosis(Final) - Ventricular tachycardia, unspecified(Final) - Paroxysmal atrial fibrillation(Final) - Essential (primary) hypertension(Final) - Hyperlipidemia, unspecified(Final) - Tobacco use(Final) - Personal history of other diseases of urinary system(Final) - custodial (current) use of anticoagulants(Final) - Other correction (current) drug therapy(Final) - Discharge Disposition: Home or Self Care Attending Physician: MD Horn Chad J Referring Physician: DO Leung Jason D Allergies, Adverse Reactions, Alerts No Known Allergies Functional Status 07/31/24 History of Fall in Last 3 Months Quinn N o Presence of Secondary Diagnosis Quinn No Use of Ambulatory Aid Quinn None/bedrest /nurse assist IV/Heparin Lock Fall Risk Quinn No Gait/Transferring Fall Risk Quinn Normal /bedrest/immobile Mental Status Fall Risk Quinn Oriented t o own ability Quinn Fall Risk Score 0 Quinn Fall Risk No Risk 07/31/24 Gait Steady Level of Consciousness Neuro Alert Speech Pattern Clear 07/31/24 Swallowing Difficulty None 07/31/24 Facial Symmetry Symmetric 07/31/24 ADLs Independent Medications Chantix 0.5 mg oral tablet Start: 06/24/24 9:44:00 AM EDT, see instructions, Disp# 11 tab, Initial Dose: Take 1 tab (0.5 mg) by mouth every day for 3 days; then take 1 tab (0.5 mg) by mouth twice a day (days 4-7); then start maintenance dose., Pharmacy: [id number] Start Date: 06/24/24 Status: Ordered Chantix 1 mg oral tablet Start: 06/24/24 9:44:00 AM EDT, 1 tab, PO, bid, Disp# 180 tab, Refills: 0, start 8 days after initial dose pack, Pharmacy: [id number] Start Date: 06/24/24 Status: Ordered Eliquis 5 mg oral tablet Start: 09/20/23 9:46:00 AM EST, See Instructions, Disp# 180 tab, Refills: 3, TAKE 1 TABLET BY MOUTH TWICE DAILY, Pharmacy: [id number] Start Date: 09/20/23 Status: Ordered hydroCHLOROthiazide 25 mg oral tablet Start: 09/20/23 9:46:00 AM EST, See Instructions, Disp# 90 tab, Refills: 3, TAKE 1 TABLET BY MOUTH ONCE DAILY, Pharmacy: [facility] Start Date: 09/20/23 Status: Ordered Metoprolol Succinate ER 25 mg oral tablet, extended release Start: 07/09/24 3:19:00 PM EST, 1.5 tab, PO, Daily, Disp# 135 tab, Refills: 3, other Start Date: 07/09/24 Status: Ordered rosuvastatin 40 mg oral tablet Start: 06/25/24 10:16:00 AM EDT, 1 tab, PO, qhs, Disp# 90 tab, Refills: 3, Note to Pharmacy: new dose, Pharmacy: [id number] Start Date: 06/25/24 [...] Diagnosis Body Site Status Colonoscopy 1, 2 11/13/20 Complete d Catheter ablation for cardia c [...] Repeat in 3 years. 3January 2013 Results Laboratory List Name Date Istat Gases Venous (CCL, HVOU) (I-STAT G ,JAQUAN(CCL,HVOU)) 07/31/24 Creatinine, POC (Cath) (CREATINE,POC (CA TH)) 07/31/24 Most recent to oldest [Reference Range]: 1 Hct, POC [38-51 %] 44 % (07/31/24 7:33 AM) Hgb, POC [12-17 g/dL] 15.0 g/dL (07/31/24 7:33 AM) Base Deficit (v), POC [0-2 mmol/L] 1 mmo l/L (07/31/24 7:33 AM) Glu (wb), POC by IStat [70-105 mg/dL] 10 6 mg/dL *HI* (07/31/24 7:33 AM) SaO2(v), POC [20-90 %] 32 % (07/31/24 7:33 AM) Estimated CrCl 87.99 mL/min (07/31/24 7:37 AM) Ion Ca(wb), POC [1.12-1.32 mmol/L] 1.27 mmol/L (07/31/24 7:33 AM) Na (wb), POC [138-146 mmol/L] 142 mmol/L (07/31/24 7:33 AM) K (wb), POC [3.5-4.9 mmol/L] 3.7 mmol/L (07/31/24 7:33 AM) pH (v), POC [7.31-7.41 unit] 7.328 unit (07/31/24 7:33 AM) pCO2 (v), POC [41-51 mmHg] 49.3 mmHg (07/31/24 7:33 AM) pO2 (v), POC [15-60 mmHg] 22 mmHg (07/31/24 7:33 AM) HCO3(v), POC [23-28 mmol/L] 25.9 mmol/L (07/31/24:33 AM) Cret, POC [0.6-1.3 mg/dL] 0.9 mg/dL (07/31/24 7:31 AM) Temp(v) NOT PROVIDED C (07/31/24:33 AM) Vital Signs Most recent to oldest [Reference Range]: 1 2 3 Height 182.8 cm (07/30/24 9:39 AM) Patient Weight 90.7 kg (07/31/24 7:15 AM) Body Mass Index 27.14 kg/m2 (07/31/24 7:15 AM) Temperature [36.5-37.9 DegC] 36.3 DegC *LOW* (07/31/24 9:30 AM) 36.3 DegC *LOW* (07/31/24 7:15 AM) Heart Rate 52 bpm (07/31/24 11:30 AM) 59 bpm (07/31/24 11:00 AM) 53 bpm (07/31/24:33 AM) Respiratory Rate 18 br/min (07/31/24 11:30 AM) 14 br/min (07/31/24 11:00 AM) 14 br/min (07/31/24:33 AM) Blood Pressure 133/71mmHg (07/31/24 11:30 AM) 137/78mmHg (07/31/24 11:00 AM) 121/49mmHg (07/31/24:33 AM) Mean Blood Pressure 81 mmHg (07/31/24 9:45 AM) 82 mmHg (07/31/24 9:30 AM) Cuff Pulse Pressure 72 mmHg (07/31/24 10:33 AM) 62 mmHg (07/31/24 10:15 AM) 57 mmHg (07/31/24 9:45 AM) Social History Social History Type Response Smoking Status Current every day li ght smoker Sex Male Sex Representation Male (finding) EKG study * Contributor_system, [id number]: VERIFY, PERFORM Event Display: EKG Authored Date: Please click on link to see image. Pre-OP H & P * Angel, DO, Sondra: PERFORM, MODIFY MD Kory, Attila Peters: MODIFY Event Display: Pre-OP H & P Authored Date: PRE-OPERATIVE HISTORY AND PHYSICAL Name: CARLA FRIEDMAN Patient Number: [id number] : 1960 Date of Service: 07/31/2024 PRE-OP Diagnosis: positive stress test Planned Procedure: coronary angiography +/- PCI Chief Complaint: palpitations History of Present Illness (including history relevant to procedure):Carla Friedman is a 64yoM witha past medical history of atrial fibrillation s/p cryoablation 06/2013 currently on Eliquis, moderate aortic stenosis, HTN, HLD, tobacco use, renal artery stenosis s/p PCI, and PFHx of premature CAD who presents today for an elective coronary angiogram. He began to notice more frequent palpitations therefore he had an event monitor placed. This confirmed Afib/AFL with RVR however also showed short runs of Afib with aberrancy vs WCT/VT. His flecainide was discontinued and his metoprolol up- titrated. An exercise echo was done was read as borderline positive ECG with negative echo images at 81% MPHR. Labs 05/2024 K 4.0, Cr 0.9, total cholesterol 150, HDL 40, non-hdl 110, TG 162, TG 84 Exercise Echo 07/11/2024 Johnnie protocol, 8min 31sec, 10MET, 81% MPHR, RPP 25K +Dyspnea EKG 1mm upsloping depression in 2/3/F & V4-V6 with 1mm TONIE in aVR, frequent atrial and ventricular ectopy with exercise LV gets smaller with normal augmentation Borderline positive exercise ECG and negative exercise stress echo at 81% TTE 06/20/24 1. Normal left ventricular size and systolic function with no regional wall motion abnormalities. 2. Ejection fraction as calculated by Biplane Simpsons method is 60-65%. 3. No left ventricular hypertrophy. 4. Grade II diastolic dysfunction of the left ventricle (pseudonormal filling pattern) with indeterminate left atrial pressure. 5. Mildly dilated right ventricle with normal systolic function. 6. Normal biatrial size. 7. Calcified, tricuspid aortic valve with moderate aortic stenosis (TVI Ratio 0.36 and AVAI 0.64 cm2/m2). 8. Trace aortic insufficiency. 9. Normal estimated pulmonary artery pressures, estimated PASP 19 mmHg. 10. Compared to previous study from 04/07/2021 , there is no significant change. Review Of Systems: 12 point ROS negative as per HPI above Past Medical History: Problems: Hyperlipidemia Atrial fibrillation Weight disorder Tobacco abuse HTN (hypertension) Postprocedural state finding Paroxysmal atrial fibrillation Family history of ischemic heart disease Renal artery stenosis Procedure History Procedure Procedure Date Comments Renal artery stent placement - August 2012 Colonoscopy 07/09/2020 - Pathology results: A) Splenic flexure polyp, polypectomy: tubular adenoma. B) Descending colon polyp, polypectomy: hyperplastic polyp C) Rectal polyp, polypectomy: segments of hyperplastic polyp. Repeat in 3 years. - COLO to cecum, 4 mmm polyp HF cold snared, DC polyp 10 mm hot snare and clip, 2 rectal polyps 2-3mm cold forceps, hemorrhoids, small condyloma Catheter ablation for cardiac arrhythmia 07/07/2013 Allergies and Sensitivities: NKA Current Home Meds: (Last Updated 07/09 15:21) ALPRAZolam (Xanax 0.5 mg oral tablet) 0.5 mg PO bid PRN: as needed for anxiety apixaban (Eliquis 5 mg oral tablet) TAKE 1 TABLET BY MOUTH TWICE DAILY hydroCHLOROthiazide (hydroCHLOROthiazide 25 mg oral tablet) TAKE 1 TABLET BY MOUTH ONCE DAILY metoprolol (Metoprolol Succinate ER 25 mg oral tablet, extended release) 37.5 mg PO Daily rosuvastatin (rosuvastatin 40 mg oral tablet) 40 mg PO qhs varenicline (Chantix 0.5 mg oral tablet) Initial Dose: Take 1 tab (0.5 mg) by mouth every day for 3days; then take 1 tab (0.5 mg) by mouth twice a day (days 4-7); then start maintenance dose. varenicline (Chantix 1 mg oral tablet) 1 mg PO bid start 8 days after initial dose pack Vitals: Last Updated 07/31/24 07:15 Weights: Last Updated 07/31/24 07:15 Date Temp Pulse BP RR SpO2 FIO2 Date Wt(kg) Wt(lb) 07/31 07:15 36.3 156/67 16 96 07/31 07:15 90.7 200 07/31 07:15 90.7 200 24 Hr Tmax: 36.3 at 07/31 07:15 Initial Wt: 07/31 90.7 kg 200 lb Physical Exam: (relevant to the procedure, including heart and lung evaluation) Constitutional: VS as above, NAD, WDWN, cooperative Eyes: PERRL, no scleral icterus ENMT: NC/AT, MMM Neck: trachea midline, nontender thyroid Resp: no use of accessory muscles, CTA b/l AP, no wheezing or rales Cardio: RRR, S1S2, 3/6 JESUS MANUEL RUSB, no peripheral edema, bilateral radial and DP 2+ GI: nontender, soft, nondistended, no hepatosplenomegaly Neuro: no FND MSK: moves all 4 extremities spontaneously ASSESSMENT: Carla Friedman is a 64yoM with a past medical history of atrial fibrillation s/p cryoablation 06/2013 currently on Eliquis, moderate aortic stenosis, HTN, HLD, tobacco use, renal artery stenosis s/p PCI, and PFHx of premature CAD who presents today for an elective coronary angiogram. Presents today for elective left heart catheterization with possible PCI. The indications, risks, benefits, and alternatives of the procedure were explained to the patient. Signed consent was placed in the patient's chart. Further recommendations pending outcomes of the procedure. Interventional Cardiology Attending Admit Note: I have personally seen and evaluated the patient on 07/31/2024 08:38:19. The patient's database was reviewed. I agree with the physical examination findings and assessment and plan as outlined above. I have discussed my concerns with the house staff and have reviewed my clinical impressions with the patient. The risks: benefits of the coronary angiogram and possible percutaneous coronary intervention were discussed with the patient and all questions, issues and concerns were answered and addressed. Electronic Signature on File Electronically Reviewed/Signed by: Sondra Ortiz DO Author Signature Dt/Tm:07/31/2024 08:34 AM Resident [facility] Electronically Reviewed/Signed by: MD Luke Bedollaigner Signature Dt/Tm: 07/31/2024 09:24 AM [facility] SG Patient Care team information Care Team Personnel Name: MD Lynn Kavita Position: Referring Member Role: Primary Care Provider Address: [facility] Internal [facility] [address] [place] [address] [place] [id number] [place] Care Team Related Persons Name: LEILA FRIEDMAN Name: LEILA FRIEDMAN Name: LEILA FRIEDMAN
--- OUTSIDE RECORDS SUMMARY | 2024-08-10 12:52 | External Medical Summary | Continuity of Care Document ---
Author Name Unknown Organization [facility] [address] [facility] Address [address] [place], [place] [id number] Care Team Providers Care Wing Commander Name Role Phone Milly Lynn Primary Care Physician [phone] [id number] Date(s): 06/20/24 - 06/20/24 [facility] [address], [address] [place] [address] [phone] Discharge Disposition: Home or Self Care Attending Physician: DO Leung Jason D Referring Physician: DO Leung Jason D Allergies, Adverse Reactions, Alerts No Known Allergies Medications Eliquis 5 mg oral tablet Start: 09/20/23 9:46:00 AM EST, See Instructions, Disp# 180 tab, Refills: 3, TAKE 1 TABLET BY MOUTH TWICE DAILY, Pharmacy: [id number] Start Date: 09/20/23 Status: Ordered flecainide 100 mg oral tablet Start: 09/20/23 9:46:00 AM EST, 1 tab, PO, q12h, Disp# 180 tab, Refills: 3, Pharmacy: [facility] Start Date: 09/20/23 Status: Ordered hydroCHLOROthiazide 25 mg oral tablet Start: 09/20/23 9:46:00 AM EST, See Instructions, Disp# 90 tab, Refills: 3, TAKE 1 TABLET BY MOUTH ONCE DAILY, Pharmacy: [facility] Start Date: 09/20/23 Status: Ordered Metoprolol Succinate ER 25 mg oral tablet, extended release Start: 09/20/23 9:46:00 AM EST, See Instructions, Disp# 45 tab, Refills: 3, TAKE 1/2 TABLET BY MOUTHNIGHTLY AT BEDTIME, Pharmacy: [facility] Start Date: 09/20/23 Status: Ordered rosuvastatin 20 mg oral tablet Start: 11/08/23 3:40:00 PM EDT, 1 tab, PO, Daily, Disp# 90 tab, Refills: 3, Pharmacy: [id number] Start Date: 11/08/23 Status: Ordered Xanax 0.5 mg oral tablet [...] hyperplastic polyp. Repeat in 3 years. 3January 2012 Results Radiology Reports * Exam Date Time Procedure Performing Provider Status 06/20/24 9:40 AM Echo TransTHORacic TTE Complete Ori Bradfordey; Final Notes: (Echo TransTHORacic TTE Complete) Reason For Exam: paf and as4 Echo TransTHORacic TTE Complete Report Signatures Finalized by Dr. Kirk Leung MD on 06/20/2024 02:08 PM [place] Act 112: Yes - Discussed with patient Summary 1. Normal left ventricular size and systolic [...] 04/07/2021 , there is no significant change. Patient Info Name: CARLA COELLO Age: 64 years : 1960 Gender: Male Ht: 183 cm Wt: 86 kg BSA: 2.10 m2 HR: 51 bpm BP: 126 / 70 mmHg Heart Rhythm: Sinus Bradycardia Technical Quality: Good Exam Date: 06/20/2024 8:41 AM Exam Location: [facility] Patient Status: Outpatient Staff Ordering Physician: Kirk Leung Bag Sewer: Nicole Mancini RDCS, T Attending Physician: Kirk Leung ([email or web address]) Study Info CPT 72615 - Indications I350 - Nonrheumatic aortic (valve) stenosis Procedure(s) * A complete two-dimensional, color flow and Doppler transthoracic echocardiogram was performed. Exam Type: Cardiac Basic Left Ventricle Normal left ventricular size and systolic function with no regional wall motion abnormalities. Ejection fraction as calculated by Biplane Simpsons method is 60-65%. No left ventricular hypertrophy. Grade II diastolic dysfunction of the left ventricle (pseudonormal filling pattern) with indeterminate left atrial pressure. Right Ventricle Mildly dilated right ventricle with normal systolic function. TAPSE is normal, 2.2 cm. Left Atrium Normal left atrial size. Right Atrium Normal right atrial size. Atrial Septum Appears intact. Aortic Valve Calcified, tricuspid aortic valve with moderate aortic stenosis (TVI Ratio 0.36 and AVAI 0.64 cm2/m2). Trace aortic insufficiency. Pulmonic Valve Normal pulmonic valve with trace insufficiency. Estimated pulmonary arterial mean pressure 11 mmHg. Mitral Valve Mildly calcified mitral valve annulus without stenosis or significant regurgitation. Tricuspid Valve Normal tricuspid valve with trace regurgitation. Normal estimated pulmonary artery pressures, estimated PASP 19 mmHg. Pericardium/Pleural No pericardial effusion. Inferior Vena Cava Normal IVC size and inspiratory collapse. Estimated right atrial pressure is 3 mmHg. Aorta Calcified aortic root, sinotubular junction and proximal thoracic descending aorta. Normal size aortic root, ascending aorta (for BSA) and aortic arch. Left Ventricular Outflow Tract Name Value Normal LVOT 2D LVOT Diameter 2.1 cm LVOT Doppler LVOT Peak Velocity 1.03 m/s LVOT Peak Gradient 4 mmHg LVOT Mean Gradient 2 mmHg LVOT VTI 25.91 cm LVOT VTI/AV VTI Ratio 0.36 LVOT Stroke Volume 93.13 ml LVOT Stroke Volume Index 0.04 l/m2 LVOT Cardiac Output 4.75 l/min LVOT Cardiac Index 2.26 L/min/m2 Pulmonic Valve Name Value Normal PV 2D RVOT Diameter (2D) 2.8 cm 1.7-2.7 RVOT Doppler RVOT Peak Velocity 0.61 m/s PV Doppler PV Peak Velocity 0.93 m/s PV Regurgitation Doppler ID Peak Velocity 1.56 m/s Mitral Valve Name Value Normal MV Doppler MV PHT 87 ms MV Diastolic Function MV E Peak Velocity 0.98 m/s <=0.50 MV A Peak Velocity 0.49 m/s MV E/A 1.99 <=0.80 MV Decel Time 299 ms MV Annular TDI MV Septal s' Velocity 5.84 cm/s MV Septal e' Velocity 5.51 cm/s >=7.00 MV E/e' (Septal) 17.8 <=8.0 MV Lateral s' Velocity 9.65 cm/s MV Lateral e' Velocity 6.49 cm/s >=10.00 MV E/e' (Lateral) 15.12 <=8.00 MV e' Average 6.00 MV E/e' (Average) 16.46 <=14.00 Tricuspid Valve Name Value Normal TV Regurgitation Doppler TR Peak Velocity 2.03 m/s <=2.80 TR Peak Gradient 17 mmHg Estimated PAP/RSVP RA Pressure 3 mmHg <=5 PA Systolic Pressure 19 mmHg <40 PA Mean Pressure (ID Velocity) 11 mmHg TV Diastolic Function TV E Peak Velocity 0.22 m/s TV A Peak Velocity 0.25 m/s TV E/A 0.86 0.80-2.00 TV Decel Time 201 ms >=120 TV Annular TDI TV Lateral Alivia s' Velocity 13.9 cm/s 9.5-18.7 TV Lateral Alivia e' Velocity 13.9 cm/s <7.8 TV E/e' 1.54 2.00-6.00 Aorta Name Value Normal Ascending Aorta Sinus of Valsalva Diameter 3.5 cm 3.1-3.7 Sinus of Valsalva Index 1.65 cm/m2 1.50-1.90 Prox Asc Ao Diameter 3.5 cm 2.6-3.4 Prox Asc Ao Diameter Index 1.66 cm/m2 1.30-1.70 Thoracic Aorta Ao Arch Diameter 2.8 cm Desc Ao Peak Velocity 0.73 m/s Desc Ao Peak Gradient 2 mmHg Venous Name Value Normal IVC/SVC IVC Diameter (Insp 2D) 0.4 cm IVC Diameter (Exp 2D) 1.3 cm <=2.1 IVC Diameter Percent Change (2D) 73 % >=50 Aortic Valve Name Value Normal AV Doppler AV Peak Velocity 2.77 m/s <2.00 AV Peak Gradient 31 mmHg AV Mean Gradient 16 mmHg <20 AV VTI 72.80 cm AV Area (Cont Eq VTI) 1.3 cm2 >=2.0 AV Area Index (Cont Eq VTI) 0.61 cm2/m2 AV Area (Cont Eq Pietro) 1.3 cm2 AV Area Index (Cont Eq Pietro) 0.64 cm2/m2 AV V1/V2 Ratio 0.37 AV Regurgitation 2D LVOT Area 3.6 cm2 Ventricles Name Value Normal LV Dimensions 2D/MM IVS Diastolic Thickness (2D) 0.9 cm 0.6-1.0 LVID Diastole (2D) 4.6 cm 3.6-5.6 LVIW Diastolic Thickness (2D) 1.0 cm 0.6-1.0 LVID Systole (2D) 2.5 cm 2.5-4.0 LVOT Diameter 2.1 cm LV Mass (2D Cubed) 144.97 g 88.00-224.00 Relative Wall Thickness (2D) 0.43 LV Fractional Shortening/Ejection Fraction 2D/MM LV Fractional Shortening (2D) 44 % 25-43 LV Diastolic Volume (4C MOD) 79 ml LV Diastolic Volume (2C MOD) 81 ml LV Diastolic Volume (BP MOD) 80 ml 62-150 LV Diastolic Volume Index (BP MOD) 38.10 ml/m2 34.00-74.00 LV Systolic Volume (BP MOD) 30 ml 21-61 LV Systolic Volume Index (BP MOD) 14.47 ml/m2 11.00-31.00 LV EF (BP MOD) 62 % 57-68 LV SV (BP MOD) 49.65 ml RV Dimensions 2D/MM RV Basal Diastolic Dimension 4.2 cm 2.5-4.1 TAPSE 2.2 cm >=1.7 Atria Name Value Normal LA Dimensions LA Area (4C) 17.9 cm2 LA Length (4C) 6.1 cm LA Area (2C) 23.3 cm2 LA Length (2C) 5.8 cm LA Volume (4C A-L) 44.72 ml LA Volume (2C A-L) 79.69 ml LA Volume (BP A-L) 61 ml 18-58 LA Volume Index (BP A-L) 29.06 ml/m2 <=34.00 RA Dimensions RA Area (4C) 16.2 cm2 <=18.0 Final Signed by:DO Leung Jason D Signed (Electronic Signature):06/20/2024 8:41 a Social History Social History Type Response Smoking Status Current every day li ght smoker Sex Male Sex Representation Male (finding) Patient Care team information Care Team Personnel Name: MD Lynn Kavita Position: Referring Member Role: Primary Care Provider Address: [facility] [address] [place] [address] [place] [address] [place] Care Team Related Persons Name: LEILA COELLO Name: LEILA COELLO Name: LEILA COELLO
--- OUTSIDE RECORDS SUMMARY | 2024-08-10 12:52 | External Medical Summary | Continuity of Care Document ---
Author Name Unknown Organization [facility] [address] [facility] Address [address] [place], [place] [id number] Care Team Providers Care Nurse'S Assistant Name Role Phone Milly Lynn Primary Care Physician [phone] [id number] Date(s): 06/24/24 - 06/24/24 [facility] [address], [address] [place] [address] [phone] Encounter Diagnosis HLD (hyperlipidemia)(Discharge Diagnosis) - 06/24/24 Afib(Discharge Diagnosis) - 06/24/24 HTN (hypertension)(Discharge Diagnosis) - 06/24/24 Tobacco use(Discharge Diagnosis) - 06/24/24 Discharge Disposition: Home or Self Care Attending Physician: MARIO Garcia Sarah A Allergies, Adverse Reactions, Alerts No Known Allergies Assessment and Plan Extracted from: Title:Cardiology Office Visit Note Author:MARIO White rd, Sarah A Date:06/24/24 IMPRESSIONS: 1. Paroxysmal atrial fibrillation with a CHADS2 score of 2 on apixaban. 2. Status post ablation via cryoablation for atrial fibrillation, June 2013. 3. Hypertension. 4. Peripheral arterial disease, status post renal artery stenting. 5. Recurrent palpitations with chocolate being a trigger, on flecainide and Toprol. 6. Echocardiogram 05/2024with normal biventricular size and function, grade II DD, moderate , Mr. Friedman's EKG in the office today shows SB with stable DC and QRS. His heart rate does not leave room to increase the flecainide. I will have him see EP for further recommendations. He will wear a 2 week MCOT to assess afib burden. He is tolerating the rosuvastatin. He will have a CMP and lipids today. His bp is controlled. His echo and renal artery US were reviewed with him. His is now moderate and his diastolic dysfunction is a little worse. He was encouraged to quit smoking. He is agreeable to starting Chantix. He understands that there is a risk of suicidal ideation and disturbing dreams on this medication and will let me know if either is occurring. He will return to the clinic for EP's first available. Medications Chantix 0.5 mg oral tablet Start: 06/24/24 9:44:00 AM EDT, see instructions, Disp# 11 tab, Initial Dose: Take 1 tab (0.5 mg) by mouth every day for 3 days; then take 1 tab (0.5 mg) by mouth twice a day (days 4-7); then start maintenance dose., Pharmacy: [id number] Start Date: 06/24/24 Status: Ordered Chantix 1 mg oral tablet Start: 06/24/24 9:44:00 AM EDT, 1 tab, PO, bid, Disp# 180 tab, Refills: 0, start 8 days after initial dose pack, Pharmacy: [id number] Start Date: 06/24/24 Status: Ordered Eliquis 5 mg oral tablet Start: 09/20/23 9:46:00 AM EST, See Instructions, Disp# 180 tab, Refills: 3, TAKE 1 TABLET BY MOUTH TWICE DAILY, Pharmacy: [facility] Start Date: 09/20/23 Status: Ordered flecainide 100 mg oral tablet Start: 09/20/23 9:46:00 AM EST, 1 tab, PO, q12h, Disp# 180 tab, Refills: 3, Pharmacy: [facility] Start Date: 09/20/23 Status: Ordered hydroCHLOROthiazide 25 mg oral tablet Start: 09/20/23 9:46:00 AM EST, See Instructions, Disp# 90 tab, Refills: 3, TAKE 1 TABLET BY MOUTH ONCE DAILY, Pharmacy: [facility] Start Date: 09/20/23 Status: Ordered Metoprolol Succinate ER 25 mg oral tablet, extended release Start: 09/20/23 9:46:00 AM EST, See Instructions, Disp# 45 tab, Refills: 3, TAKE 1/2 TABLET BY MOUTHNIGHTLY AT BEDTIME, Pharmacy: [facility] Start Date: 09/20/23 Status: Ordered rosuvastatin 40 mg oral tablet Start: 06/25/24 10:16:00 AM EDT, 1 tab, PO, qhs, Disp# 90 tab, Refills: 3, Note to Pharmacy: new dose, Pharmacy: [facility] Start Date: 06/25/24 Status: Ordered Xanax 0.5 mg oral tablet Start: 09/26/19 2:50:00 PM EST, 1 tab, PO, bid, PRN: as needed for anxiety Start Date: 09/26/19 Status: Ordered Mental Status 06/24/24 Barriers to Learning one year None evide nt Mandatory Health Literacy Documentation Yes Health Literacy Communication Barriers N ever Primary Language Georgian Problem List Condition Confirmation Course Effective Dates Status H ealth Status Informant Family history of ischemic heart disease Confirmed Active HTN (hypertension) Confirmed Active Hyperlipidemia Confirmed Active Paroxysmal atrial fibrillation Confirmed Active Atrial fibrillation Confirmed Active Postprocedural state finding Confirmed Active Renal artery stenosis Confirmed Active Tobacco abuse Confirmed Active Weight disorder Confirmed Active Diagnosis Diagnosis Type Effective Dates Health Status Cl inical Service Informant HTN (hypertension) Discharge Diagnosis 06/24/24 Non-Specified Tobacco use Discharge Diagnosis 06/24/24 Non-Specified HLD (hyperlipidemia) Discharge Diagnosis 06/24/24 Non-Specified Afib Discharge Diagnosis 06/24/24 Non-Specified Procedures Procedure Date Related Diagnosis Body Site [...] Repeat in 3 years. 3January 2012 Results Laboratory List Name Date Comprehensive Metabolic Panel. (Comprehe nsive Metabolic Panel-ARLN) 06/24/24 Lipid Panel. (Lipid Panel-[facility]) 06/24/24 Most recent to oldest [Reference Range]: 1 Bilirubin, Total (QST) [0.2-1.2 mg/dL] 1 .2 mg/dL 1 (06/24/24 10:57 AM) BUN-[facility] [7-25 mg/dL] 13 mg/dL 2 (06/24/24 10:57 AM) Creatinine-[facility] [0.70-1.35 mg/dL] 0.88 mg/dL 3 (06/24/24 10:57 AM) BUN/Creat Ratio-[facility] [6-22 (calc)] SEE NOTE: (calc) 4 (06/24/24 10:57 AM) Na-[facility] [135-146 mmol/L] 138 mmol/L 5 (06/24/24 10:57 AM) K-[facility] [3.5-5.3 mmol/L] 4.0 mmol/L 6 (06/24/24 10:57 AM) Cl-[facility] [98-110 mmol/L] 100 mmol/L 7 (06/24/24 10:57 AM) CO2-[facility] [20-32 mmol/L] 31 mmol/L 8 (06/24/24 10:57 AM) Ca-[facility] [8.6-10.3 mg/dL] 9.7 mg/dL 9 (06/24/24 10:57 AM) Globulin-[facility] [1.9-3.7 g/dL (calc)] 2.6 g/dL (calc) 10 (06/24/24 10:57 AM) A/G Ratio-[facility] [1.0-2.5 (calc)] 1.8 (ca lc) 11 (06/24/24 10:57 AM) Alkaline Phosphatase (ALP) [35-144 U/L] 86 U/L 12 (06/24/24 10:57 AM) Albumin, Serum [3.6-5.1 g/dL] 4.7 g/dL 1 3 (06/24/24 10:57 AM) ALT [9-46 U/L] 22 U/L 14 (06/24/24 10:57 AM) eGFR-QST [> OR = 60 mL/min/1.73m2] 96 mL /min/1.73m2 15 (06/24/24 10:57 AM) Triglycerides-QST [<150 mg/dL] 162 mg/dL 16 *HI* (06/24/24 10:57 AM) Non HDL Chol-QST [<130 mg/dL (calc)] 110 mg/dL (calc) 17 (06/24/24 10:57 AM) HDL Chol-QST [> OR = 40 mg/dL] 40 mg/dL 18 (06/24/24 10:57 AM) Chol/HDLC Ratio-QST [<5.0 (calc)] 3.8 (c alc) 19 (06/24/24 10:57 AM) Cholesterol-QST [<200 mg/dL] 150 mg/dL 2 0 (06/24/24 10:57 AM) LDL Chol-QST 84 mg/dL (calc) 21 (06/24/24 10:57 AM) AST [10-35 U/L] 16 U/L 22 (06/24/24 10:57 AM) Glucose-Qst [65-99 mg/dL] 97 mg/dL 23 (06/24/24 10:57 AM) Total Protein-QST [6.1-8.1 g/dL] 7.3 g/d L 24 (06/24/24 10:57 AM) 1Result Comment: Specimen Received d/t: 06/24/2024 22:50:00 Lab test performed by: [employer] [facility] [employer] [address] [place] [phone] Deshaun Lilly MD 2Result Comment: Specimen Received d/t: 06/24/2024 22:50:00 Lab test performed by: [employer] [facility] [facility] [address] [place] [address] [place] [address]Zaina Lilly MD 3Result Comment: Specimen Received d/t: 06/24/2024 22:50:00 Lab test performed by: [employer] [facility] [employer] [phone] Lilly MD 4Result Comment: Not Reported: BUN and Creatinine are within reference range. Specimen Received d/t: 06/24/2024 22:50:00 Lab test performed by: [employer] [facility] [employer] [place] [address]Erich Lilly MD 5Result Comment: Specimen Received d/t: 06/24/2024 22:50:00 Lab test performed by: [employer] [facility] [address] [phone] Menjivarati, MD 6Result Comment: Specimen Received d/t: 06/24/2024 22:50:00 Lab test performed by: [employer] [facility] [address] ARNAV Zhao MD 7Result Comment: Specimen Received d/t: 06/24/2024 22:50:00 Lab test performed by: [employer] [facility] [address] ARNAV Zhao MD 8Result Comment: Specimen Received d/t: 06/24/2024 22:50:00 Lab test performed by: [employer] [facility] [address] ARNAV Zhao MD 9Result Comment: Specimen Received d/t: 06/24/2024 22:50:00 Lab test performed by: [employer] [facility] [address] ARNAV Zhao MD 10Result Comment: Specimen Received d/t: 06/24/2024 22:50:00 Lab test performed by: [employer] [facility] [address] ARNAV Zhao MD 11Result Comment: Specimen Received d/t: 06/24/2024 22:50:00 Lab test performed by: [employer] [facility] [address] A[address] Zhao MD 12Result Comment: Specimen Received d/t: 06/24/2024 22:50:00 Lab test performed by: [employer] [facility] [address] ARNAV Zhao MD 13Result Comment: Specimen Received d/t: 06/24/2024 22:50:00 Lab test performed by: [employer] [facility] [address] A[address] Zhao MD 14Result Comment: Specimen Received d/t: 06/24/2024 22:50:00 Lab test performed by: [employer] [facility] [address] [place] [address] Deshaun Lilly MD 15Result Comment: Specimen Received d/t: 06/24/2024 22:50:00 Lab test performed by: [employer] [facility] [address] [place] [address] Deshaun Lilly MD 16Result Comment: Specimen Received d/t: 06/24/2024 22:50:00 Lab test performed by: [employer] [facility] [address] [place] [address] Deshaun Lilly MD 17Result Comment: For patients with diabetes plus 1 major ASCVD risk factor, treating to a non-HDL-C goal of <100 mg/dL (LDL-C of <70 mg/dL) is considered a therapeutic option. Specimen Received d/t: 06/24/2024 22:50:00 Lab test performed by: [employer] [facility] [address] [place] [address] Deshaun Lilly MD 18Result Comment: Specimen Received d/t: 06/24/2024 22:50:00 Lab test performed by: [employer] [facility] [address] [place] [address] Deshaun Lilly MD 19Result Comment: Specimen Received d/t: 06/24/2024 22:50:00 Lab test performed by: [employer] [facility] [address] [place] [address] Deshaun Lilly MD 20Result Comment: Specimen Received d/t: 06/24/2024 22:50:00 Lab test performed by: [employer] [facility] [address] [place] [address] Deshaun Lilly MD 21Result Comment: Reference range: <100 Desirable range <100 mg/dL for primary prevention; <70 mg/dL for patients with CHD or diabetic patients with > or = 2 CHD risk factors. LDL-C is now calculated using the Jenna calculation, which is a validated novel method providing better accuracy than the Friedewald equation in the estimation of LDL-C. Manny SS et al. DARNELL. 2013;310(66): 1691-3897 (http://Soxiable.Siteheart/faq/BKA185) Specimen Received d/t: 06/24/2024 22:50:00 Lab test performed by: [employer] [facility] [address] [place] [address] Deshaun Lilly MD 22Result Comment: Specimen Received d/t: 06/24/2024 22:50:00 Lab test performed by: [employer] [facility] [employer] [address] [place] [phone] Deshaun Lilly MD 23Result Comment: Fasting reference interval Specimen Received d/t: 06/24/2024 22:50:00 Lab test performed by: [employer] [facility] [employer] [phone] Deshaun Lilly MD 24Result Comment: Specimen Received d/t: 06/24/2024 22:50:00 Lab test performed by: [employer] [facility] [address] [place] [phone] Deshaun Lilly MD Vital Signs Most recent to oldest [Reference Range]: 1 Patient Weight 87 kg (06/24/24 9:19 AM) Heart Rate 60 bpm (06/24/24 9:19 AM) Respiratory Rate 18 br/min (06/24/24 9:19 AM) Blood Pressure 130/68mmHg (06/24/24 9:19 AM) BP Location # 1 Left Arm (06/24/24 9:19 AM) Social History Social History Type Response Smoking Status Current every day li ght smoker Sex Male Sex Representation Male (finding) EKG study * Contributor_system, MUSE01: VERIFY, PERFORM Event Display: EKG Authored Date: [id number] Please click on link to see image. Cardiology Outpatient Note * MARIO Garcia Sarah A: PERFORM, MODIFY, MODIFY, MODIFY, MODIFY Event Display: Cardiology Outpt Note Authored Date: [id number] Primary Care Provider MD Shane, Milly Chief Complaint frequent episodes afib , heart racing, flutters, tired ,chest pain denies shortness of breath, dizziness, or lightheadedness, no edema, no resent ER visits, no unusual bleeding History of Present Illness Mr. Friedman presents for follow up of his history PAF, hld, moderate , htn, and current tobaccouse. He is having more episodes of afib. He has them multiple times per week and episodes will last for hours. It wipes him out and he will sleep in for hours in the morning until late in the morning. Hiswife notes she can feel his rhythmirregularlyovernight. No snoring. He is not having any shortness of breath or chest pain but is doing yard work including raking leaves and feels well doing so. No edema. No fainting. Still smoking 10 cigarettes a day. Review of Systems All other systems reviewed and negative except as discussed in the HPI Physical Exam Vitals & Measurements HR:60(Monitored) RR:18 BP:130/68 SpO2:98% WT:87.000kg(Dosing) WT:87kg Physical Examination General: Alert and oriented, No acute distress. Respiratory: Lungs are clear to auscultation, Respirations are non-labored. Cardiovascular: Normal rate, Regular rhythm,3/6 rusb systolicmurmur, No edema, no carotid bruits to auscultation bilaterally. Integumentary: Warm, Dry, [place] Neurologic: Alert, Oriented. Cognition and Speech: Speech clear and coherent. Psychiatric: Cooperative, Appropriate mood & affect. Assessment/Plan IMPRESSIONS: 1. Paroxysmal atrial fibrillation with a CHADS2 score of 2 on apixaban. 2. Status post ablation via cryoablation for atrial fibrillation, June 2013. 3. Hypertension. 4. Peripheral arterial disease, status post renal artery stenting. 5. Recurrent palpitations with chocolate being a trigger, on flecainide and Toprol. 6. Echocardiogram 05/2024with normal biventricular size and function, grade II DD, moderate , Mr. Friedman's EKG in the office today shows SB with stable DC and QRS. His heart rate does not leave room to increase the flecainide. I will have him see EP for further recommendations. He will wear a 2 week MCOT to assess afib burden. He is tolerating the rosuvastatin. He will have a CMP and lipids today. His bp is controlled. His echo and renal artery US were reviewed with him. His is now moderate and his diastolic dysfunction is a little worse. He was encouraged to quit smoking. He is agreeable to starting Chantix. He understands that there is a risk of suicidal ideation and disturbing dreams on this medication and will let me know if either is occurring. He will return to the clinic for EP's first available. Problem List/Past Medical History Ongoing Atrial fibrillation Family history of ischemic heart disease HTN (hypertension) Hyperlipidemia Paroxysmal atrial fibrillation Postprocedural state finding Renal artery stenosis Tobacco abuse Weight disorder Resolved HEADACHE Renal artery stenosis Procedure/Surgical History Colonoscopy| Service Date: 07/09/2020Catheter ablation for cardiac arrhythmia| Service Date: 07/07/2013Renal artery stent placement Medications ALPRAZolam(Xanax 0.5 mg oral tablet), 0.5 mg= 1 tab, PO, bid, PRN apixaban(Eliquis 5 mg oral tablet), See Instructions, 3 refills flecainide(flecainide 100 mg oral tablet), 100 mg= 1 tab, PO, q12h, 3 refills hydroCHLOROthiazide(hydroCHLOROthiazide 25 mg oral tablet), See Instructions, 3 refills metoprolol(Metoprolol Succinate ER 25 mg oral tablet, extended release), See Instructions, 3 refills rosuvastatin(rosuvastatin 20 mg oral tablet), 20 mg= 1 tab, PO, Daily, 3 refills varenicline(Chantix 0.5 mg oral tablet), see instructions varenicline(Chantix 1 mg oral tablet), 1 mg= 1 tab, PO, bid Allergies NKA Social History Smoking Status Current every day light smoker Family History Heart attack: Father. Health Status Family Member(s) Mother: History is negative Family Member(s) Relationship: Father, Age: Unknown Electronic Signature on File CC: Milly Lynn MD [facility] [address] [place] [id number] * Electronically Reviewed/Signed by: MARIO Douglas Author Signature Dt/Tm:06/24/2024 10:18 AM [facility] [place] [facility] Patient Care team information Care Team Personnel Name: MD Lynn Kavita Position: Referring Member Role: Primary Care Provider Address: [facility] [address] [facility] [address] [place] [address] [place] Care Team Related Persons Name: LEILA FRIEDMAN Name: LEILA FRIEDMAN Name: LEILA FRIEDMAN"
--- OUTSIDE RECORDS SUMMARY | 2024-08-10 12:52 | External Medical Summary | Continuity of Care Document ---
Author Name Unknown Organization [facility] [address] [facility] Address [address] [place], [place] [id number] Care Team Providers Care Raw Cheese Worker Name Role Phone Milly Lynn Primary Care Physician [phone] [id number] Date(s): 06/20/24 - 06/20/24 [facility] [address], [address] [place] [address] [phone] Discharge Disposition: Home or Self Care Attending Physician: DO Leung Jason D Referring Physician: DO Leung Jason D Allergies, Adverse Reactions, Alerts No Known Allergies Medications Eliquis 5 mg oral tablet Start: 09/20/23 9:46:00 AM EST, See Instructions, Disp# 180 tab, Refills: 3, TAKE 1 TABLET BY MOUTH TWICE DAILY, Pharmacy: [facility] Start Date: 09/20/23 Status: Ordered flecainide 100 mg oral tablet Start: 09/20/23 9:46:00 AM EST, 1 tab, PO, q12h, Disp# 180 tab, Refills: 3, Pharmacy: [facility] Start Date: 09/20/23 Status: Ordered hydroCHLOROthiazide 25 mg oral tablet Start: 09/20/23 9:46:00 AM EST, See Instructions, Disp# 90 tab, Refills: 3, TAKE 1 TABLET BY MOUTH ONCE DAILY, Pharmacy: [facility] Start Date: 09/20/23 Status: Ordered Metoprolol Succinate ER 25 mg oral tablet, extended release Start: 09/20/23 9:46:00 AM EST, See Instructions, Disp# 45 tab, Refills: 3, TAKE 1/2 TABLET BY MOUTHNIGHTLY AT BEDTIME, Pharmacy: [facility] Start Date: 09/20/23 Status: Ordered rosuvastatin 20 mg oral tablet Start: 11/08/23 3:40:00 PM EDT, 1 tab, PO, Daily, Disp# 90 tab, Refills: 3, Pharmacy: [facility] Start Date: 11/08/23 Status: Ordered [...] Date Time Procedure Performing Provider Status 06/20/24 9:39 AM VL Renal Artery Duplex Bilateral Phil Nicole amador; Final Notes: (VL Renal Artery Duplex Bilateral) Reason For Exam: renal stent VL Renal Artery Duplex Bilateral [facility] FINAL REPORT Name: CARLA COELLO : 1960 Visit: [id number] Date: 20 Jun 2024 TYPE OF TEST: Visceral Arterial Duplex REASON FOR TEST Left renal stent. INTERPRETATION/FINDINGS Duplex imaging performed of the renovascular system: 1. No renal artery stenosis identified in the bilateral renal arteries. Both renal arteries were well visualized. Patent proximal left renal artery stent with no evidence of restenosis. 2. Patent bilateral renal veins with normal flow. 3. The right kidney measures 12.0 cm. The left kidney measures 13.2 cm. 4. Anechoic, avascular structure identified in the right kidney measuring 1.4 cm x 1.4 cm, most consistent with a renal cyst. Compared to the previous study performed 04/07/2021, there is no significant change. IMPRESSION/COMMENTS I have personally reviewed the data relevant to the interpretation of this study. TECHNOLOGIST: Nicole Mancini, KENDAL, RVT PHYSICIAN: Nemesio Laurent MD Signed: 06/20/2024 05:49 PM Final Dictated by:MD Laurent Aditya Dictated DT/TM:06/20/2024 5:49 Signed by:MD Laurent Aditya Signed (Electronic Signature):06/20/2024 5:49 p Transcribed by: Social History Social History Type Response Smoking Status Current every day li ght smoker Sex Male Sex Representation Male (finding) Patient Care team information Care Team Personnel Name: MD Lynn Kavita Position: Referring Member Role: Primary Care Provider Address: [facility] [address] [place] [address] [place] Care Team Related Persons Name: LEILA COELLO Name: LEILA COELLO Name: LEILA COELLO
--- OUTSIDE RECORDS SUMMARY | 2024-08-10 12:52 | External Medical Summary ---
Author Name Unknown Address Unknown Organization : Laboratory Report Ordering Provider Test Date Status Jose Sosa 06/24/2024 10:58:00 Final Observation Date Value Abnormality Reference (Units ) Status Non HDL Chol 06/25/2024 01:59:00 110 <130 (m g/dL (calc)) Final For patients with diabetes p vandana 1 major ASCVD risk
factor, treating to a non-HDL-C goal of <100 mg/dL
(LDL-C of <70 mg/dL) is considered a therapeutic
option.

Specimen Received d/t: 06/24/2024 22:50:00

Lab test performed by:
[facility], [facility]
[address]
[place] [phone]
Deshaun Lilly MD Triglyceride [Mass/volume] in Serum or Plasma 06/25/2024 01:59:00 162 Above high normal <150 (mg/dL) Fin al
Specimen Received d/t: 06/24/2024 22:50:00

Lab test performed by:
[facility], [facility]
[address]
[place] [address]
Deshaun Lilly MD Cholesterol [Mass/volume] in Serum or Plasma 06/25/2024 01:59:00 150 <200 (mg/dL) Final
Specimen Received d/t: 06/24/2024 22:50:00

Lab test performed by:
[facility], [facility]
[address] [place] [address]
Deshaun Lilly MD Cholesterol.total/Cholestero l in HDL [Mass Ratio] in Serum or Plasma 06/25/2024 01:59:00 3.8 <5 .0 ((calc)) Final
Specimen Received d/t: 06/24/2024 22:50:00

Lab test performed by:
[facility], [facility]
[address]
[place] [address]
Deshaun Lilly MD Cholesterol in HDL [Mass/vol ume] in Serum or Plasma 06/25/2024 01:59:00 40 > OR = 40 (mg/dL) Final
Specimen Received d/t: 06/24/2024 22:50:00

Lab test performed by:
[facility], [facility]
[address] [place] [address]
Deshaun Lilly MD LDL Chol 06/25/2024 01:59:00 84 (mg/dL (ca lc)) Final Reference range: <100
<b r/>Desirable range <100 mg/dL for primary prevention;
<70 mg/dL for patients with CHD or diabetic patients
with > or = 2 CHD risk factors.

LDL-C is now calculated using the Manny-Prabhakar
calculation, which is a validated novel method providing
better accuracy than the Friedewald equation in the
estimation of LDL-C.
Manny RUIZ et al. DARNELL. 2013;310(19): 2061- 2068
(http://Photetica.CloudSlides/faq/QMT231)

Specimen Received d/t: 06/24/2024 22:50:00

Lab test performed by:
[facility]
[address]
[place] [address]
Deshaun Lilly MD Performing Location
--- OUTSIDE RECORDS SUMMARY | 2024-08-10 12:52 | External Medical Summary ---
Author Name Unknown Address Unknown Organization : Laboratory Report Ordering Provider Test Date Status Jose Sosa 06/24/2024 10:58:00 Final Observation Date Value Abnormality Reference (Units ) Status eGFR 06/25/2024 01:59:00 96 > OR = 60 (mL/min/1.73m2) Final
Specimen Received d/t: 06/24/2024 22:50:00

Lab test performed by:
[facility], [facility]
[address]
[place] [address]
Deshaun Lilly MD Carbon dioxide, total [Moles /volume] in Serum or Plasma 06/25/2024 01:59:00 31 20-32 (mmol/L) Fin al
Specimen Received d/t: 06/24/2024 22:50:00

Lab test performed by:
[facility], [facility]
[address]
[place] [address]
Deshaun Lilly MD Albumin/Globulin [Mass Ratio ] in Serum or Plasma 06/25/2024 01:59:00 1.8 1.0-2.5 ((calc)) F inal
Specimen Received d/t: 06/24/2024 22:50:00

Lab test performed by:
[facility], [facility]
[address]
[place] [address]
Deshaun Lilly MD Glucose [Mass/volume] in Serum or Plasma 06/25/2024 01:59:00 97 65-99 (mg/dL) Final
Fasting reference inte rval

Specimen Received d/t: 06/24/2024 22:50:00

Lab test performed by:
[facility], [facility]
[address]
[place] [address]
Deshaun Lilly MD Sodium [Moles/volume] in Ser um or Plasma 06/25/2024 01:59:00 138 135-146 (mmol/L) Liza l
Specimen Received d/t: 06/24/2024 22:50:00

Lab test performed by:
[facility], [facility]
[address]
[place] [address]
Deshaun Lilly MD Protein [Mass/volume] in Ser um or Plasma 06/25/2024 01:59:00 7.3 6.1-8.1 (g/dL) Final
Specimen Received d/t: 06/24/2024 22:50:00

Lab test performed by:
[facility], [facility]
[address]
[place] [address]
Deshaun Lilly MD Alkaline phosphatase [Enzyma tic activity/volume] in Serum or Plasma 06/25/2024 01:59:00 86 35-144 (U/L) Final
Specimen Received d/t: 06/24/2024 22:50:00

Lab test performed by:
[facility], [facility]
[address]
[place] [address]
Deshaun Lilly MD Creatinine [Mass/volume] in Serum or Plasma 06/25/2024 01:59:00 0.88 0.70-1.35 (mg/dL) Fin al
Specimen Received d/t: 06/24/2024 22:50:00

Lab test performed by:
[facility], [facility]
[address]
[place] [address]
Deshaun Lilly MD Chloride [Moles/volume] in S ramona or Plasma 06/25/2024 01:59:00 100 98-110 (mmol/L) Final
Specimen Received d/t: 06/24/2024 22:50:00

Lab test performed by:
[facility], [facility]
[address]
[place] [address]
Deshaun Lilly MD Alanine aminotransferase [En zymatic activity/volume] in Serum or Plasma 06/25/2024 01:59:00 22 9-46 (U/L) Final
Specimen Received d/t: 06/24/2024 22:50:00

Lab test performed by:
[facility], [facility]
[address]
[place] [address]
Deshaun Lilly MD Gl[facility]ulin[facility] 06/25/2024 01:59:00 2.6 1.9-3 .7 (g/dL (calc)) Final
Specimen Received d/t: 06/24/2024 22:50:00

Lab test performed by:
[facility], [facility]
[address]
[place] [address]
Deshaun Lilly MD Urea nitrogen/Creatinine [Ma ss Ratio] in Serum or Plasma 06/25/2024 01:59:00 SEE NOTE: 6-22 ((c alc)) Final Not Reported: BUN and Creati nine are within
reference range.

Specimen Received d/t: 06/24/2024 22:50:00

Lab test performed by:
[facility], [facility]
[address]
[place] [address]
Deshaun Lilly MD Ca[facility] 06/25/2024 01:59:00 9.7 8.6-10.3 ( mg/dL) Final
Specimen Received d/t: 06/24/2024 22:50:00

Lab test performed by:
[facility], [facility]
[address]
[place] [address]
Deshaun Lilly MD Bilirubin.total [Mass/volume ] in Serum or Plasma 06/25/2024 01:59:00 1.2 0.2-1.2 (mg/dL) Fi nal
Specimen Received d/t: 06/24/2024 22:50:00

Lab test performed by:
[facility], [facility]
[address]
[place] [address]
Deshaun Lilly MD Urea nitrogen [Mass/volume] in Serum or Plasma 06/25/2024 01:59:00 13 7-25 (mg/dL) Final
Specimen Received d/t: 06/24/2024 22:50:00

Lab test performed by:
[facility], [facility]
[address]
[place] [address]
Deshaun Lilly MD Potassium [Moles/volume] in Serum or Plasma 06/25/2024 01:59:00 4.0 3.5-5.3 (mmol/L) Liza l
Specimen Received d/t: 06/24/2024 22:50:00

Lab test performed by:
[facility], [facility]
[address]
[place] [phone]
Deshaun Lilly MD Albumin [Mass/volume] in Ser um or Plasma 06/25/2024 01:59:00 4.7 3.6-5.1 (g/dL) Final
Specimen Received d/t: 06/24/2024 22:50:00

Lab test performed by:
[facility], [facility]
[address]
[place] [address]
Deshaun Lilly MD Aspartate aminotransferase [ Enzymatic activity/volume] in Serum or Plasma 06/25/2024 01:59:00 16 10-35 (U/L) Final
Specimen Received d/t: 06/24/2024 22:50:00

Lab test performed by:
[facility], [facility]
[address]
[place] [phone]
Deshaun Lilly MD Performing Location
--- OUTSIDE RECORDS SUMMARY | 2024-08-10 12:52 | External Medical Summary | Continuity of Care Document ---
Author Name Unknown Organization [facility] [address] [facility] Address [address] [place], [place] [id number] Care Team Providers Care Materials Technician Name Role Phone Milly Lynn Primary Care Physician [phone] [facility]counter [facility] [id number] Date(s): 06/24/24 - 06/24/24 [facility] [address], [address] [place] [address] [phone] Discharge Disposition: Home or Self Care Attending [...] (days 4-7); then start maintenance dose., Pharmacy: [id number] Start Date: 06/24/24 Status: Ordered Chantix 1 mg oral tablet Start: 06/24/24 9:44:00 AM EDT, 1 tab, PO, bid, Disp# 180 tab, Refills: 0, start 8 days after initial dose pack, Pharmacy: [id number] Start Date: 06/24/24 Status: Ordered Eliquis 5 mg oral tablet Start: 09/20/23 9:46:00 AM EST, See Instructions, Disp# 180 tab, Refills: 3, TAKE 1 TABLET BY MOUTH TWICE DAILY, Pharmacy: [id number] Start Date: 09/20/23 Status: Ordered flecainide 100 mg oral tablet Start: 09/20/23 9:46:00 AM EST, 1 tab, PO, q12h, Disp# 180 tab, Refills: 3, Pharmacy: [facility] Start Date: 09/20/23 Status: Ordered hydroCHLOROthiazide 25 mg oral tablet Start: 09/20/23 9:46:00 AM EST, See Instructions, Disp# 90 tab, Refills: 3, TAKE 1 TABLET BY MOUTH ONCE DAILY, Pharmacy: [facility] Start Date: 09/20/23 Status: Ordered Metoprolol Succinate ER 25 mg oral tablet, extended release Start: 09/20/23 9:46:00 AM EST, See Instructions, Disp# 45 tab, Refills: 3, TAKE 1/2 TABLET BY MOUTHNIGHTLY AT BEDTIME, Pharmacy: [facility] Start Date: 09/20/23 Status: Ordered rosuvastatin 40 mg oral tablet Start: 06/25/24 10:16:00 AM EDT, 1 tab, PO, qhs, Disp# 90 tab, Refills: 3, Note to Pharmacy: new dose, Pharmacy: [id number] Start Date: 06/25/24 Status: [...] polyp. Repeat in 3 years. 3January 2012 Social History Social History Type Response Smoking Status Current every day li ght smoker Sex Male Sex Representation Male (finding) Patient Care team information Care Team Personnel Name: MD Lynn Kavita Position: Referring Member Role: Primary Care Provider Address: [facility] [address] [place] [address] [place] Care Team Related Persons Name: LEILA COELLO Name: LEILA COELLO Name: LEILA COELLO
[2024-08-10] MEDS: ROSUVASTATIN CALCIUM 20 MG TAB PO SCH (20:40)
[2024-08-10] MEDS: METOPROLOL SUCC 50MG EXT REL TAB PO SCH (20:41)
--- NOTE | 2024-08-10 21:35 | XCELERA ---
[id number]
--- NOTE | 2024-08-11 06:03 | Electrocardiogram Report ---
Test Reason : Blood Pressure : */* mmHG Vent. Rate : 62 BPM Atrial Rate : 62 BPM P-R Int : 148 ms QRS Dur : 78 ms QT Int : 392 ms P-R-T Axes : 76 61 26 degrees QTcB Int : 397 ms Normal sinus rhythm Nonspecific ST abnormality When compared with ECG of 21-Jan-2013 09:04, Nonspecific ST abnormality is now Present Confirmed by Bharat Collins ([id number]) on 08/11/2024 6:03:09 AM Referred By: REFERRED SELF Confirmed By: Bharat Collins
[2024-08-11 08:00] LABS: Basophils # (auto) 0.04 K/uL (0.00-0.20); Basophils % (auto) 0.4 %; Eosinophils # (auto) 0.01 K/uL (0.00-0.50); Eosinophils % (auto) 0.1 %; Hematocrit (blood only) 41.9 % (42.0-52.0); Hemoglobin 14.6 g/dl (14.0-18.0); Immature Granulocytes # (auto) 0.03 K/uL (0.01-0.20); Immature Granulocytes % (auto) 0.3 %; Lymphocytes # (auto) 2.06 K/uL (1.20-3.40); Mean Corpuscular Hemoglobin 31.7 pg (25.0-34.0); Mean Corpuscular Hgb Conc 34.8 g/dL (32.0-36.0); Mean Corpuscular Volume 90.9 fL (80.0-100.0); Mean Platelet Volume 10.2 fL (9.4-12.4); Monocytes # (auto) 1.03 K/uL (0.11-0.59); Monocytes % (auto) 11.5 %; Neutrophils % (auto) 64.7 %; Platelet Count 211 K/uL (130-400); RDW Coefficient of Variation 12.7 % (11.5-14.5); RDW Standard Deviation 42.4 fL (36.4-46.3); Red Blood Count 4.61 M/uL (4.70-6.10); White Blood Count 8.97 K/ul (4.8-10.8)
--- NOTE | 2024-08-11 08:01 | Cardiology Progress Note ---
Date of Service August 11, 2024 Assessment & Plan (1) Syncope: Plan IMPRESSIONS: 1. Paroxysmal atrial fibrillation with a CHADS2 score of 2 on apixaban. 2. Status post ablation via cryoablation for atrial fibrillation, June 2013. 3. Hypertension. 4. Peripheral arterial disease, status post renal artery stenting. 5. Recurrent palpitations with chocolate being a trigger, on flecainide and Toprol. 6. Echocardiogram 05/2024 with normal biventricular size and function, grade II DD, moderate , 7. 30 day MCOT monitor 06/2024 showing Symptomatic atrial flutter/ Fib up to 157 BPM, Short runs of monomorphic VT between 4-13 beats in duration up to 165 BPM -- asymptomatic 8. Cardiac catheterization at [facility] 07/31 demonstrating non occlusive CAD mLAD (30%, iFR 0.95), Mildly elevated left sided filling pressures (LVEDP 18 mmHg), Ixvb-gy-eddu transaortic pressure gradient of 20mmHg, indicating moderate aortic stenosis Mr. Friedman notes that overall he feels well and is hoping to go home. I would like him to see EP first to see if further inpatient work up would be recommended vs. outpatient given his history of NSVT and his lack of prodrome that he can recall before fainting. He also had loss of bowel and bladder which is concerning for seizure. He has not had any events on monitor. He is maintaining sinus rhythm. He continues on Eliquis for his history of afib/aflutter. His continues to be moderate on his echo here. Admission and Anticipated Discharge Date Admission Date: August 10, 2024 Subjective Mr. Friedman feels pretty good overall today. His COVID symptoms are minimal. He denies sob or chest pain. He has not had any events on the monitor. He is maintaining SR. Review of Systems Review of Systems: All systems reviewed & are unremarkable except as noted in HPI & below Physical Exam Constitutional: WD/WN, vitals as above Respiratory: normal respiratory effort, lungs clear to auscultation Cardiovascular: Rate/Rhythm: regular rate and regular rhythm Heart Sounds: + murmur (3/6 rusb systolic murmur) Extremities: no edema Skin: no rashes, warm and dry swelling, laceration on bridge of nose with dried blood Neurologic: moves all extremities and awake Psychiatric: A+Ox3, euthymic affect Results & Data Vital Signs (Past 12 Hours) Vital Signs Temp Pulse Pulse Resp BP Pulse Ox O2 Del Method 08/11/24 07:20 37.3 C 71 16 133/78 94 Room Air 08/11/24 05:40 59 L 08/11/24 02:50 36.6 C 69 20 144/70 H 96 Room Air 08/10/24 23:10 36.7 C 66 18 112/50 L 95 Room Air 08/10/24 23:00 64 (1) Syncope Syncope type: unspecified Qualified Code(s): R55 - Syncope and collapse
[2024-08-11 08:18] LABS: Albumin Globulin Ratio 1.3 (0.9-2); BUN Creatinine Ratio 25.6 (10-20); Bilirubin,Total 1.1 mg/dl (0.2-1.0); Calcium 9.1 mg/dl (8.6-10.3); Magnesium 1.9 mg/dl (1.7-2.4); Potassium 3.8 mmol/L (3.5-5.1)
[2024-08-11] MEDS: REMDESIVIR 100 MG in SODIUM CHLORIDE 0.9% 230 ML IV SCH (12:22)
[2024-08-11] MEDS: POTASSIUM CHLORIDE CRTAB 20 MEQ TABCR PO STA (13:08)
[2024-08-11] MEDS: SODIUM CHLORIDE 0.9% 500 ML IV ONE (13:11)
[2024-08-11] MEDS: MAGNESIUM SULFATE / D5W 1 GM/100 ML BAG IV ONE (13:25)
[2024-08-11 15:50] VITALS: BP 145/70; PULSE 63; RESP 16; TEMP 99.4; O2SAT 95
--- NOTE | 2024-08-11 18:05 | Hospitalist Progress Note ---
Date of Service August 11, 2024 Assessment & Plan (1) Syncope and collapse: Plan: 64-year-old man with A-fib, PAD and hypertension as well as palpitations with recent cardiology evaluation for arrhythmias, ambulatory monitor with episodes of A-fib/flutter that were symptomatic also episodes of NSVT which were asymptomatic. Admitted with syncope of such abrupt onset that caused significant nasal facial laceration. the concern here is cardiogenic syncope. he also does have COVID-19 and was symptomatic of some gastroenteritis Has recently worn a monitor with Dr. Leung that identified A-fib/a flutter, ventricular tachycardia 4-13 beats. Underwent cardiac catheterization at [facility] on 07/31 which showed mild coronary artery disease an isolated mid LAD 30% lesion, moderate aortic stenosis based on cath gradient There is a follow-up appointment at [facility] on 08/14 to see service center specialist TTE 08/10 with normal LV EF 65-70% no RWMA's mild concentric LVH normal RV moderate aortic stenosis with trace aortic regurgitation No significant arrhythmias on tele review reviewed recommendations from [facility] cardiology who saw him this morning. They have consulted Dr. Rust who plans to see him after clinic today - continue metoprolol and apixaban, continue rosuvastatin - await recommendations from EP - I replaced low normal potassium and magnesium today (2) Ventricular tachycardia: Plan: See 1 (3) Atrial fibrillation: Plan: See 1 (4) Hypokalemia: Plan: replaced (5) Chronic anticoagulation: Plan: Eliquis 5mg BID (6) Nasal laceration: Plan: sutured in ED on 08/10. he knows to follow-up for suture removal in 5 days on 08/15 (7) Hyperlipidemia: Plan: Continue rosuvastatin 40 mg at bedtime, previously on pravastatin 20 at bedtime (8) COVID-19 virus infection: Plan: COVID-19 infection/gastroenteritis- contributed to volume depletion/dehydration and hypokalemia/hypomagnesemia Continue Remdesivir - probably can stop after third dose no significant respiratory symptoms or hypoxia (9) Diarrhea due to COVID-19: Plan: Occurred x1 during fall, resolved per patient. Plan mild elevation of TSH at 7, could be euthyroid sick .Recheck TSH outpatient. he feels well enough to go home, we are awaiting EP input DVT prophylaxis: On apixaban Admission and Anticipated Discharge Date Admission Date: August 10, 2024 Subjective Diarrhea resolving No significant cough Main issue is from the nose laceration and soreness both upper teeth - teeth not loose or cracked Staying on liquids diet, has to work on maintaining on hydration straw and sipping a little difficult Physical Exam 2 Physical Exam: PHYSICAL EXAMINATION Last 24h vital signs reviewed, see documentation in flowsheet General: comfortable appearing, no distress HEENT: erythema and swelling of nose suture line intact, crusted blood on philtrum. both maxillary incisors are intact Lungs: Normal respiratory effort. Clear to auscultation bilaterally. No RRW Heart: Regular rate and rhythm, no murmurs. No JVD Abdomen: Soft, nontender, nondistended. Bowel sounds present. Extremities: Warm, dry, well-perfused. No extremity edema. Neuro: Alert and oriented x 4, face symmetric, moves 4 extremities well Psych: Normal affect and behavior Results & Data Results & Data Vital Signs (Past 12 Hours) Vital Signs Temp Pulse Pulse Resp BP Pulse Ox O2 Del Method 08/11/24 15:47 99.4 F 63 16 145/70 H 95 Room Air 08/11/24 13:00 67 08/11/24 11:26 97.9 F 65 19 140/74 96 Room Air 08/11/24 07:20 99.1 F 71 16 133/78 94 Room Air Laboratory Results 08/11/24 07:02 08/11/24 07:02 PG Care Time/CCT Total # of Minutes Spent Total Time Spent with Patient: Total time spent is greater than 50% in coordination of care (as documented) at patient's floor/unit and/or counseling patient: Coding Level of Care Code 59467 SUB INP/OBS CARE 2/35MIN Diagnoses Syncope and collapse R55 Ventricular tachycardia I47.20 Atrial fibrillation I48.91 Hypokalemia E87.6 Chronic anticoagulation Z79.01 Nasal laceration S01.21XA Hyperlipidemia E78.5 COVID-19 virus infection U07.1 Diarrhea due to COVID-19 U07.1; A08.39
--- NOTE | 2024-08-11 19:00 | Discharge Summary ---
Discharge Summary Date of Service August 11, 2024 Principal Dx & Hospital Course #1 = Principal Diagnosis (1) Syncope and collapse: 64-year-old man with A-fib, PAD and hypertension as well as palpitations with recent cardiology evaluation for arrhythmias, ambulatory monitor with episodes of A-fib/flutter that were symptomatic also episodes of NSVT which were asymptomatic. Admitted with syncope of such abrupt onset that caused significant nasal facial laceration. the concern here is cardiogenic syncope. he also does have COVID-19 and was symptomatic of some gastroenteritis Has recently worn a monitor with Dr. Leung that identified A-fib/a flutter, ventricular tachycardia 4-13 beats. Underwent cardiac catheterization at [facility] on 07/31 which showed mild coronary artery disease an isolated mid LAD 30% lesion, moderate aortic stenosis based on cath gradient There is a follow-up appointment at [facility] on 08/14 to see cash processing specialist TTE 08/10 with normal LV EF 65-70% no RWMA's mild concentric LVH normal RV moderate aortic stenosis with trace aortic regurgitation No significant arrhythmias on tele review reviewed recommendations from [facility] cardiology who saw him this morning. They have consulted Dr. Rust who plans to see him after clinic today - continue metoprolol and apixaban, continue rosuvastatin - EP Dr. Rust consulted today - I discussed with him - he felt it safe for discharge today, follow up with [facility] EP as scheduled on , consider loop recorder - I replaced low normal potassium and magnesium today - HCTZ held because of COVID/diarrhea/dehydration/hypokalemia etc - discuss with cardiology whether to resume in future once COVID diarrhea resolved - instructed to maintain good oral hydration (2) Ventricular tachycardia: See 1 (3) Atrial fibrillation: See 1 (4) Hypokalemia: replaced (5) Chronic anticoagulation: Eliquis 5mg BID (6) Nasal laceration: sutured in ED on 08/10. he knows to follow-up for suture removal in 5 days on 08/15 (7) Hyperlipidemia: Continue rosuvastatin 40 mg at bedtime, previously on pravastatin 20 at bedtime (8) COVID-19 virus infection: COVID-19 infection/gastroenteritis- contributed to volume depletion/dehydration and hypokalemia/hypomagnesemia treated in hospital with Remdesivir - mild COVID and ok to stop no significant respiratory symptoms or hypoxia (9) Diarrhea due to COVID-19: Plan mild elevation of TSH at 7, could be euthyroid sick .Recheck TSH outpatient. Notes For Next Care Provider Medication Changes From Visit Flecainide recently stopped HCTZ HELD Admission HPI Per Admitting Provider The patient is a 64-year-old male with a past medical history including atrial fibrillation status post ablation several years ago, recently diagnosed ventricular tachycardia, recent negative cardiac catheterization at [facility] on 07/31, hypertension, and hyperlipidemia. His reports that he had had loose stools over the past 24 to 48 hours, and he reports nasal congestion and sinus congestion. He has had no cough or shortness of breath. He was diagnosed with COVID in the emergency department this morning. Discharge Exam see prog note today Discharge Plan Discharge Items Patient Disposition: Home - Self-Care Reason For Visit: SYNCOPE & COLLAPSE, COVID, HYPOKALEMIA,HX VENT TAC Discharge Diagnosis: COVID-19, syncope, facial laceration Activity: Per Instructions section Non-emergency contact: Primary Care Provider and Payroll Clerk Follow-up/Referrals: Kirk Leung DO [Physician] - PCP,NO [Primary Care Provider] - Diet: Heart Healthy Addtl Attending Provider Instructions: You were treated for: COVID-19 causing gastroenteritis (diarrhea) -we treated with antiviral (remdesivir). Symptoms are mild so no further doses needed -its ok to take imodium or pepto-bismol for diarrhea -work hard on staying hydrated so that your urine is light yellow -HOLD hydrochlorothiazide - may be contributing to dehydration and low potassium/magnesium, which could trigger arrhythmia, syncope Arrhythmias -stay on metoprolol -follow up with EP cardiology on as scheduled -Dr. Rust suggested considering a loop recorder -no driving for right now and avoid situations where you could injure yourself if you pass out Facial laceration -follow up for suture removal in four more days (08/15 or sunday). A nurse can remove sutures - urgent care or primary care office is ok -seek medical attention if you have worsening nose/lip pain swelling, redness or drainage, or fever It was a pleasure taking care of you in the hospital, Sheila Cuevas MD Pending Studies at Discharge: No Stand-Alone Forms: [facility] [employer], Smoking Cessation Medications and DC Order Prescriptions: Continued metoprolol succinate 25 mg tablet extended release 24 hr 50 mg PO DAILY rosuvastatin 40 mg tablet 40 mg PO DAILY Eliquis 5 mg tablet 5 mg PO BID Held hydrochlorothiazide 25 mg Tablet 25 mg PO DAILY Qty: 0 Hold Instructions: Resume on 09/08/24. hold at least until COVID symptoms resolved and you're having good oral intake. Discuss with inspector conveyor line whether to resume in future. flecainide 100 mg tablet 0 mg PO BID Hold Instructions: Resume on 09/08/24. Discuss with inspector conveyor line whether this should be resumed in the future Rx Instructions: Last filled 05/2024 x30 day supply. Original Directions: 100mg by mouth twice daily Discharge Orders: Discharge Order (Routine); Ordered 08/11/24 Ordered By: Sheila Cuevas Admission Data Admit Date/Time: 08/10/24 06:35 Attending Provider: Sheila Cuevas Admit Provider: Edin Abbott Primary Care Provider: PCP,NO Other Providers: Edin Abbott; Bharat Collins; Kirk Leung; Landon Rust Hospital Stay Data Consultations 08/10/24 06:05 ED Decision to Admit Stat 08/10/24 08:23 Consult Cardiology Routine 08/11/24 08:00 Consult Cardiology Routine 08/11/24 09:21 Consult Cardiology Routine Diagnostic Imagining Performed 08/10/24 03:44 CT cervical spine wo con Stat CT facial bones wo con Stat CT head/brain wo con Stat Pending Results Patient Have Any Pending Studies at Discharge: No Discharge Instructions Given to Patient (Per Discharging Provider) You were treated for: COVID-19 causing gastroenteritis (diarrhea) -we treated with antiviral (remdesivir). Symptoms are mild so no further doses needed -its ok to take imodium or pepto-bismol for diarrhea -work hard on staying hydrated so that your urine is light yellow -HOLD hydrochlorothiazide - may be contributing to dehydration and low potassium/magnesium, which could trigger arrhythmia, syncope Arrhythmias -stay on metoprolol -follow up with EP cardiology on as scheduled -Dr. Rust suggested considering a loop recorder -no driving for right now and avoid situations where you could injure yourself if you pass out Facial laceration -follow up for suture removal in four more days (08/15 or sunday). A nurse can remove sutures - urgent care or primary care office is ok -seek medical attention if you have worsening nose/lip pain swelling, redness or drainage, or fever It was a pleasure taking care of you in the hospital, Sheila Cuevas MD Total Time Total Time Spent Total Time Spent (In Minutes): I personally spent: 40 minutes today on clinical care activities including: reviewing chart notes and vital signs reviewing labs discussion with business analysis consultant(s), bedside RN examining and counseling the patient writing orders discharge instructions documentation Coding Level of Care Code 10379 INP/OBS DISCH >30 MIN Diagnoses Syncope and collapse R55 Ventricular tachycardia I47.20 Atrial fibrillation I48.91 Hypokalemia E87.6 Chronic anticoagulation Z79.01 Nasal laceration S01.21XA Hyperlipidemia E78.5 COVID-19 virus infection U07.1 Diarrhea due to COVID-19 U07.1; A08.39
--- NOTE | 2024-08-11 20:46 | Cardiology Consultation ---
Date of Consultation August 11, 2024 Assessment & Plan (1) Syncope and collapse: (2) Ventricular tachycardia: (3) Paroxysmal atrial fibrillation: (4) S/P ablation of atrial fibrillation: (5) CAD (coronary artery disease): (6) Hypokalemia: Plan ASSESSMENT/PLAN: 1. Syncope: Etiology uncertain. His initial evaluation was for palpitations. Curiously, he did not have palpitations leading up to this event. He has had some nonsustained ventricular tachycardia on outpatient monitoring but not associated with symptoms. He has preserved LV systolic function and absence of significant coronary disease put him in a low risk category. Evaluation of his outpatient stress test suggest that the morphology of the PVCs could be from an outflow tract source. Not a perfect match. It is possible that he had an element of bradycardia, cough syncope or even increased vagal tone as he did lose bowel and bladder control during the episode. I do not think there is a definitive etiology for his event. Given the concern over arrhythmia I think implanting a loop recorder would be of value. 2. Ventricular tachycardia: Some episodes of nonsustained VT recorded on his outpatient monitor. These did not appear to be associated with symptoms. Review of his telemetry here in the hospital revealed a 4 beat run of ventricular ectopy. Again, no notable symptoms. He does not have frequent ventricular ectopy. Overall the percentage of ventricular ectopy on his outpatient monitor was less than 1%. He is on flecainide which can cause monomorphic VT. However, he is on a moderate dose and the QRS duration as well as corrected QT intervals are not prolonged. On beta-blockade in addition. Given preserved LV systolic function and absence of significant coronary disease no need for treatment in and of itself. 3. Paroxysmal atrial fibrillation: Some recurrence on his monitor. However, overall few symptoms. Well-tolerated and brief episodes. He did not experience typical symptoms prior to his syncopal event. He is continuing on beta- blockade, flecainide and anticoagulation. 4. CAD: Mild and nonobstructive per patient report. Risk factor modification. Continue statin therapy. History of Present Illness Reason for Consultation: Syncope, hx NSVT Requesting Physician: Jose Attending Physician: Sheila Cuevas MD History of Present Illness The patient is a 64-year-old gentleman with a history of paroxysmal atrial fibrillation status post catheter based therapy in 2012 who has also known to have nonobstructive coronary disease. The patient underwent an evaluation over the past few months for symptoms of palpitations. He was noted on outpatient monitoring to have episodes of nonsustained ventricular tachycardia (up to 13 beats) and subsequently underwent exercise echocardiography. The patient had some abnormal EKG changes during exercise with some additional ventricular ectopy. No definite evidence of ischemia. However, based on his symptoms and history he was referred for coronary angiography which was performed on [address] [facility]. No obstructive coronary disease was identified. Recently the patient has been experiencing some symptoms of an upper respiratory infection. This involved a sore throat and nasal congestion. Yesterday evening he went to his kitchen to obtain some [id number] cold medication when he suffered a syncopal episode and injury to his face. Patient states that he had been coughing frequently leading up to this event. However, he did not recall coughing at the exact moment he passed out. He did not have any notable prodrome. He was unaware of any palpitations. Did not experience dizziness. He was attended by his son who was in the house. It appeared that the patient soiled himself and also urinated sometime during this event. He was brought to the restroom and over the next several minutes reports additional episodes of syncope and unsteadiness. It may have been at this point that he suffered his most serious facial injury. The patient was separately brought to the hospital where he required some operative repair of his nose. He was placed on telemetry and admitted for observation. Patient states that in general he feels well. He is able to perform routine activity yardwork and other exercise without symptom. He does have occasional palpitations but he feels these are quite rare, not associated with other symptoms and fairly fleeting in nature. This been his typical pattern since his ablation in 2012. He has been maintained on flecainide. He did recall 1 additional episode of syncope which occurred several years ago. This was while he was camping. There was a very hot day and he believes he may have been overheated. Currently he is feeling well with the exception of his upper respiratory symptoms and nasal congestion. Allergies Allergy/AdvReac Type Severity Reaction Status Date / Time No Known Allergies Allergy Unverified 08/11/24 10:01 Home Medications Medication Instructions Recorded Confirmed Type hydrochlorothiazide 25 mg tablet 25 mg PO DAILY #0 tabs 11/28/16 08/11/24 History apixaban 5 mg tablet (Eliquis) 5 mg PO BID 08/11/24 08/11/24 History flecainide 100 mg tablet 0 mg PO BID 08/11/24 08/11/24 History metoprolol succinate 25 mg 50 mg PO DAILY 08/11/24 08/11/24 History tablet,extended release 24 hr rosuvastatin 40 mg tablet 40 mg PO DAILY 08/11/24 08/11/24 History Patient History Surgical History (Updated 08/10/24 @ 13:59 by Bharat Collins MD) S/P ablation of atrial fibrillation Social History Smoking Status: Current every day smoker Tobacco Type: Cigarettes Cigarettes Per Day: 3; Hx Alcohol Use: No Hx Substance Use: No Preferred Language: Uzbek Communication Ability: Effective Budder Required: No Beliefs That Will Affect Care: None Current Living Situation: Spouse Current Living Situation Comment: 1 story house Feels Safe at Home: Yes Assistive Devices: None Review of Systems Review of Systems: Per HPI Physical Exam Physical Exam: The patient is alert and oriented. Mood and affect appeared normal. He answered all questions appropriately. HEENT: Pupils are equal and reactive to light and accommodation. Extraocular movements are intact. The sclerae are anicteric. Neuro: Cranial nerves intact Swollen nose with laceration that has been sutured. Lungs: Clear to auscultation bilaterally. He has good air movement without use of accessory muscles. No rales wheezes or rhonchi. Cardiac: Heart demonstrates a regular rate and rhythm. Normal S1 and S2. Crescendo systolic murmur Pulses: The patient has palpable radial pulses bilaterally that are equal in intensity Extremities: There was no evidence of hypoperfusion. There is no cyanosis or clubbing. There is no edema. Skin: I did not appreciate any rashes on examination today. Results & Data Vital Signs (Past 12 Hours) Vital Signs Temp Pulse Pulse Resp BP Pulse Ox O2 Del Method 08/11/24 19:07 37.4 C 63 16 145/70 H 95 08/11/24 15:47 37.4 C 63 16 145/70 H 95 Room Air 08/11/24 13:00 67 08/11/24 11:26 36.6 C 65 19 140/74 96 Room Air Laboratory Results Abnormal Lab Results 08/10/24 08/11/24 03:30 07:02 WBC 8.97 RBC 4.61 L Hgb 14.6 Hct 41.9 L MCV 90.9 MCH 31.7 MCHC 34.8 RDW Std Deviation 42.4 RDW Coeff of Marcial 12.7 Plt Count 211 MPV 10.2 Immature Gran % (Auto) 0.3 Neut % (Auto) 64.7 Lymph % (Auto) 23.0 Carroll % (Auto) 11.5 Eos % (Auto) 0.1 Baso % (Auto) 0.4 Neut # (Auto) 5.80 Lymph # (Auto) 2.06 Carroll # (Auto) 1.03 H Eos # (Auto) 0.01 Baso # (Auto) 0.04 Immature Gran # (Auto) 0.03 Sodium 136 Potassium 3.8 Chloride 103 Carbon Dioxide 24 Anion Gap 9 BUN 20 Creatinine 0.78 Est Cr Clr Drug Dosing 105.0 eGFR 99.58 BUN/Creatinine Ratio 25.6 H Glucose 102 H Calcium 9.1 Magnesium 1.9 Total Bilirubin 1.1 H AST 27 ALT 24 Alkaline Phosphatase 74 Total Protein 7.0 Albumin 4.0 Globulin 3.0 Albumin/Globulin Ratio 1.3 Hepatitis C Ab Screen Negative Diagnostic Findings Cardiac catheterization 07/31/2024: Mild nonobstructive coronary disease. Mildly elevated left ventricular end-diastolic pressure at 18 mmHg. Moderate aortic stenosis with peak to peak gradient of 20 mmHg. Exercise echocardiogram 07/11/2024: 1. Borderline positive exercise ECG for ischemia. 2. 0.5-1mm upsloping ST depression 2/3/AVF and V4-V6 with [address] elevation in AVR. 3. Negative Exercise Stress Echocardiogram for ischemia at 81 % MPHR. 4. Pt remained on metoprolol. 5. Given borderline ECG and increased ventricular ectopy (couplets and triplets) with exercise and during immediate recovery, further diagnostic testing may be warranted. 6. Heart rate recovery 34 beats at 1 minute. 7. Above average exercise tolerance for age and gender, 120% of predicted, achieving 10.1 METs. Echocardiogram 06/20/2024: 1. Normal left ventricular size and systolic function with no regional wall motion abnormalities. 2. Ejection fraction as calculated by Biplane Simpsons method is 60-65%. 3. No left ventricular hypertrophy. 4. Grade II diastolic dysfunction of the left ventricle (pseudonormal filling pattern) with indeterminate left atrial pressure. 5. Mildly dilated right ventricle with normal systolic function. 6. Normal biatrial size. 7. Calcified, tricuspid aortic valve with moderate aortic stenosis (TVI Ratio 0.36 and AVAI 0.64 cm2/m2). 8. Trace aortic insufficiency. 9. Normal estimated pulmonary artery pressures, estimated PASP 19 mmHg. 10. Compared to previous study from 04/07/2021 , there is no significant change. Outpatient monitor 07/09/2024: Symptomatic atrial flutter/ Fib up to 157 BPM Short runs of monomorphic VT between 4-13 beats in duration up to 165 BPM -- asymptomatic PG Care Time/CCT Total # of Minutes Spent Total Time Spent with Patient: Total time spent is greater than 50% in coordination of care (as documented) at patient's floor/unit and/or counseling patient: Coding Level of Care Code 86027 IN/OBS CONSULT LVL 4,60M Diagnoses Syncope and collapse R55 Ventricular tachycardia I47.20 Paroxysmal atrial fibrillation I48.0 S/P ablation of atrial fibrillation Z98.890; Z86.79 CAD (coronary artery disease) I25.10 Hypokalemia E87.6
== END 2024-08-11 20:21 | disposition home or self-care (01) | DRG 312 ==
LOC: SUATTDRO → ED 03:20 → 2E 06:35 → SUATTDRO 06:35 → 2E 07:45